=== PATIENT | male | born 1960 | race Caucasian/White ===

== ENCOUNTER 2017-06-05 18:24 | Inpatient (IN) | payer MEDICARE ==
[~2017-06-05] VITALS: Ht 195.6 cm; Wt 88.0 kg
[2017-06-05] VITALS (16 sets, daily range): BP systolic 105–146; BP diastolic 47–86; Ht 195.6 cm; Wt 88.0 kg
--- NOTE | ~2017-06-05 | EC ---
PATIENT:MOHIT CHARLTON DATE OF SERVICE: 06/05/17 SEX: M MEDICAL RECORD: [id number] DATE OF : 64 LOCATION:D.M2 D.211 AGE OF PATIENT: 57 ADMISSION DATE: 06/05/17 REFERRING PHYSICIAN: INTERPRETING PHYSICIAN: JELANI REYES MD ECHOCARDIOGRAM REPORT ECHO CHARGES 4 ECHO COMPLETE CLINICAL DIAGNOSIS: [place] ECHOCARDIOGRAPHIC MEASUREMENTS (adult normal given) AC root (d.<3.7cm) 4.5 cm LV Septum d (<1.2 cm> 1.3 cm Valve Excursion 2.7 cm LV Septum (systole) 1.7 cm Left Atria (s.<4.0cm> 4.1 cm LVPW d(<1.2cm) 1.2 cm RV (d.<2.3cm) 3.0 cm LVPW (sytole) 2.2 cm LV diastole(<5.6CM) 7.6 cm MV E-F(>70mm/sec) cm LV systole 5.5 cm LVOT Diameter 2.3 cm MV exc.(>10mm) cm Est.ejection fraction (50-75%) % Pericardial Effusion N DOPPLER: LVIT cm/sec A 71.0 cm/sec E 106 cm/sec LA cm/sec RVSP 46.0 mmHg LVOT 141 cm/sec AOP1/2T m/s Asc. Ao 149 cm/sec RVOT 48.0 cm/sec RA cm/sec PA 84.0 cm/sec AV Gradient Peak 8.9 mmHg AV Mean 4.0 mmHg AV Area 4.2 cm MV Gradient Peak 7.8 mmHg MV Mean 2.5 mmHg MV Area cm COMMENTS: Program Evaluation Consultant: Darshan AVINAOE Acupuncturist: Tessa Reyes TAPE# PACS DATE OF SERVICE: 06/07/2017 FINDINGS: 1. The left ventricle is moderately dilated. There are wall motion abnormalities with moderate to severe anterior septal hypokinesis, normal inferior lateral wall motion. 2. The ejection fraction appears to be 30%. 3. The left atrium is mildly dilated. 4. Mitral valve is structurally normal with trace to mild mitral regurgitation. 5. The aortic valve is shown to have mildly dilated aortic root and a ECHOCARDIOGRAM REPORT [id number] MOHIT CHARLTON centralized area of moderate aortic regurgitation. 6. The tricuspid valve has mild tricuspid regurgitation with mildly elevated right ventricular systolic pressures. 7. There is no pericardial or pleural effusion. 8. The pulmonic valve is not well visualized. There is trace pulmonic insufficiency. 9. The right atrium is moderately dilated. 10. The right ventricle is mildly dilated with normal function. 11. Inflow characteristics are normal into the left ventricle. IMPRESSION: The patient has evidence of ischemic cardiomyopathy with regional wall motion abnormalities and ejection fraction that is moderately to significantly reduced. TRANSINT:[id number] Voice Confirmation ID: [id number] DOCUMENT ID: [id number] 06/11/2017 Edited to correct date of service, dm. JELANI REYES MD at 1252 CC: [id number] DICTATION DATE: 06/08/17 0932 FRONT OFFICE SPECIALIST: 06/08/17 1302 DIS IN 06/08/17 [facility] [address] [place] [address]
--- NOTE | ~2017-06-05 | HEMODYNAMI ---
PATIENT:MOHIT CHARLTON MEDICAL RECORD: [id number] : 64 [facility] AD[facility] DATE: 06/05/17 Generatedon:06/05/201720:10 Patient name: MOHIT CHARLTON Patient #: [id number] SSN: : 1960 Date of study: 06/05/2017 Page: Of Hemodynamic Procedure Report Patient Data Patient Demographics Procedure consent was obtained First Name: MOHIT Gender: Male Last Name: ZOLTAN : 1960 [facility] Initial: CATALINA Age: 57 year(s) Patient #: [id number] Race: Unknown Additional ID: [id number] Contact details Address: [address] [place] [address] circle State: [place] City: [place] Zip code: [address] Past Medical History Allergies: No allergy information Admission Admission Data Admission Date: 06/05/2017 Admission Time: 19:12 Room #: [facility] Procedure Procedure Types Cath Procedure Diagnostic Procedure LHC LHC w/Coronaries PCI Procedure AMI/SVG/CADD DRAFTER PTCA or Stent AMI-BMS/HALEIGH Initial Miscellaneous Procedures Moderate Sedation up to 30 minutes Procedure Description Procedure Date Procedure Date: 06/05/2017 Procedure Start Time: 19:41 Procedure End Time: 20:10 Procedure Staff Name Function Vic Castro MD Performing Physician Chris Nolasco RT Monitor Basia Madrigal RT Scrub Héctor Maki RN Nurse Kinjal Campos RN Nurse Procedure Data Cath Procedure Fluoroscopy Diagnostic fluoroscopy Total fluoroscopy Time: time: 10.2 min 10.2 min Diagnostic fluoroscopy Total fluoroscopy dose: dose: 1461 mGy 1461 mGy Contrast Material Contrast Material Type Amount (ml) Isovue 300 200 Entry Location Entry Primary Successful Side Size Upsize Upsize Entry Closure Succes sful Closure Location (Fr) 1 (Fr) 2 (Fr) Remarks Device Remarks Femoral Right 6 Fr Exoseal artery Short Estimated blood loss: 10 ml Diagnostic catheters Device Type Used For End Catheter Placement MULTIPACK Pigtail 5 Fr LV Angiography catheter MULTIPACK JL 4.0 5Fr Left Coronary catheter Angiography MULTIPACK 3DRC 5Fr Right Coronary catheter Angiography DIAGNOSTIC JL 5 5Fr Left Coronary catheter ([id number]) Angiography Procedure Complications No complications Procedure Medications Medication Administration Route Dosage 0.9% NaCl I.V. 100 ml/hr Oxygen NC 2 l/min Lidocaine 2% added to field 20 Heparin Flush Bag 2 bags (1000units/500ml NS) Fentanyl I.V. 50 mcg Versed I.V. 1 mg Versed I.V. 0.5 mg Fentanyl I.V. 50 mcg Heparin Bolus I.V. 5000 units Integrilin (Bolus I.V. 7.9 ml 2mg/ml) Integrilin Drip I.V. drip 13.6 ml/hr (75mg/100ml) Versed I.V. 0.5 mg Hemodynamics Rest Heart Rate: 96 (bpm) Snapshots Pre Cath Intra NCS Post Cath Vital Signs Time Heart Resp SPO2 etCO2 NIBP (mmHg) Rhythm Pain Sedation Rate (ipm) (%) (mmHg) Status Level (bpm) 19:33:46 105 20 98 18.1 136/83(110) NSR 0 (11) 10(A) , No pain 19:38:27 101 19 95 25 128/74(98) NSR 0 (11) 10(A) , No pain 19:43:07 115 16 97 29.5 124/77(98) NSR 0 (11) 9(A) , No pain 19:47:48 98 22 98 24.2 127/69(94) NSR 0 (11) 9(A) , No pain 19:52:29 97 22 95 27.2 124/69(90) NSR 0 (11) 9(A) , No pain 19:57:07 97 22 95 27.2 122/70(95) NSR 0 (11) 9(A) , No pain 20:01:48 95 18 97 30.3 130/73(94) NSR 0 (11) 10(A) , No pain 20:06:28 95 23 98 21.2 130/72(97) NSR 0 (11) 10(A) , No pain Medications Time Medication Route Dose Verified Delivered Reason No pop Effectiveness by by 19:33:36 0.9% NaCl I.V. 100ml/hr Vic Anaya used for Matthew Maki RN procedure 19:33:47 Oxygen NC 2 l/min Vic Anaya Per physician Matthew Maki RN 19:33:58 Lidocaine 2% added 20ml vial Vic Ho for local to Matthew Castro MD anesthetic field 19:34:05 Heparin Flush 2 bags Vic Ho used for Bag Matthew Castro MD procedure (1000units/500ml NS) 19:41:07 Fentanyl I.V. 50 mcg Vic Anaya for sedation Matthew Maki RN 19:41:17 Versed I.V. 1 mg Vic Anaya for sedation Matthew Maki RN 19:42:16 Versed I.V. 0.5 mg Vic Anaya for sedation Matthew Maki RN 19:43:20 Fentanyl I.V. 50 mcg Vic Anaya for sedation Matthew Maki RN 19:50:51 Heparin Bolus I.V. 5000 Vic Layton for ve rified units Matthew Campos RN anticoagulation by dr. castro 19:53:51 Integrilin I.V. 7.9 ml Vic Layton for wa gibson (Bolus 2mg/ml) Matthew Campos RN antiplatelet 2.1ML therapy 19:58:14 Integrilin Drip I.V. 13.6ml/hr Vic Layton for pe r (75mg/100ml) ip Matthew Campos RN antiplatelet therapy 19:59:21 Versed I.V. 0.5 mg Vic Leachfany for sedation Matthew Campos RN Procedure Log Time Note 19:13:14 Informed consent obtained and on chart 19:13:40 Time tracking: Call back 19:13:44 Plan of Care:Hemodynamics will remain stable., Cardiac rhythm will remain stable., Comfort level will be maintained., Respiratory function will remain adequate., Patient/ family verbilizes understanding of procedure., Procedure tolerated without complication., Recovers from procedure without complications.. 19:13:57 H&P Date Dictated: 06/05/2017 ER History on chart.. 19:21:53 Chris Nolasco RT(R) sent for patient. Start room use. 19:23:18 Use device set CATH PACK 19:23:23 Use device set MATTHEW PCI 19:23:24 ACIST Syringe (35721) opened to sterile field. 19:23:25 ACIST Hand Control (54380) opened to sterile field. 19:23:25 ACIST Manifold (32662) opened to sterile field. 19:23:26 Medline Cath Pack ([id number]) opened to sterile field. 19:23:26 Bag Decanter (2002) opened to sterile field. 19:23:27 DIAGNOSTIC WIRE .035 260cm J wire (972276) opened to sterile field. 19:23:27 INFLATOR Merit BasixCompak (TM8448) opened to sterile field. 19:23:28 SHEATH 6FR [place] (TAS365) opened to sterile field. 19:23:53 PERCUTANEOUS ENTRY 19GA needle opened to sterile field. 19:26:34 Patient received from CVICU to CCL 1 Alert and oriented. Tansferred to table in Supine position. 19:26:34 Warm blankets applied, and richi hugger turned on for patient comfort. 19:26:35 Correct patient and procedure confirmed by team. 19:26:36 ECG and BP/O2 sat monitors applied to patient. 19:26:37 Full Disclosure recording started 19:32:53 Vital chart was started 19:33:36 0.9% NaCl 100ml/hr I.V. was administered by Héctor Maki RN; used for procedure; 19:33:47 Oxygen 2 l/min NC was administered by Héctor Maki RN; Per physician; 19:33:55 Baseline sample Acquired. 19:33:58 Lidocaine 2% 20ml vial added to field was administered by Vic Castro MD; for local anesthetic; 19:34:05 Heparin Flush Bag (1000units/500ml NS) 2 bags was administered by Vic Castro MD; used for procedure; 19:34:07 Rhythm: sinus rhythm , w/ ST elevation 19:34:11 Pre-procedure instructions explained to patient. 19:34:12 Pre-op teaching completed and patient verbalized understanding. 19:34:14 Family in waiting room. 19:34:16 Patient NPO since Midnight. 19:35:03 Patient allergic to No allergy information 19:35:06 Is the patient allergic to Iodine/contrast media? No. 19:35:10 Is patient on blood thinner?No 19:35:12 Patient diabetic? Yes. 19:35:15 If diabetic: On Metformin? Yes 19:35:17 If on Metformin: Last Dose? 06/05/2017 19:35:21 Previous problem with sedation/anesthesia? No ? 19:35:22 Snore? Yes 19:35:25 Sleep apnea? No 19:35:26 Deviated septum? No 19:35:27 Opens mouth fully? Yes 19:35:27 Sticks out tongue? Yes 19:35:30 Airway obstruction? No ? 19:35:33 Dentures? No ? 19:35:36 Pre procedure: right dorsailis pedis pulse 2+ Normal; easily identifiable; not easily obliterated 19:35:40 Patient pain scale 0/10 ?. 19:35:50 IV patent on arrival in right antecubital with 0.9% NaCl at [facility]. 19:35:56 Lab results completed and on chart. 19:35:59 Right groin area was prepped with chlora-prep and draped in sterile fashion 19:36:00 Alarms reviewed by R. N. 19:36:00 Sharps counted by scrub and verified by R.N. 19:36:21 NO CHART AVAILABLE 19:36:50 Final Timeout: patient, procedure, and site verified with staff and physician. All members of the team are in agreement. 19:36:51 Right groin site verified by team. 19:36:53 Physical assessment completed. ASA score P 2 - A patient with mild systemic disease as per Vic Castro MD. 19:36:56 Sedation plan: IV Moderate Sedation Medication:Versed, Fentanyl 19:38:46 TNK GIVEN AT [address] [facility] PER DR CASTRO 19:40:02 Zero performed for pressure channel P1 19:41:07 Fentanyl 50 mcg I.V. was administered by Héctor Maki RN; for sedation; 19:41:17 Versed 1 mg I.V. was administered by Héctor Maki RN; for sedation; 19:41:36 Procedure started. 19:41:39 Local anesthetic to right femoral artery with Lidocaine 2% by Vic Castro MD.INITIAL ACCESS ONLY 19:42:16 Versed 0.5 mg I.V. was administered by Héctor Maki RN; for sedation; 19:42:27 A 6 Fr Short sheath was inserted into the Right Femoral artery 19:42:49 Use device set Multipack Set 19:42:52 DIAGNOSTIC Multipack 5Fr catheter set ([id number]) opened to sterile field. 19:43:01 A MULTIPACK Pigtail 5 Fr catheter was advanced over the wire and used for LV Angiography. 19:43:20 Fentanyl 50 mcg I.V. was administered by Héctor Maki RN; for sedation; 19:43:33 LV gram done using HSIEH 19:43:38 EF : 30 % 19:43:41 Injector settings: Ml/sec: 10, Volume: 20, 19:43:43 Catheter removed. 19:43:47 A MULTIPACK JL 4.0 5Fr catheter was advanced over the wire and used for Left Coronary Angiography.UNABLE TO CANNULATE 19:44:13 Catheter removed. 19:44:28 A MULTIPACK 3DRC 5Fr catheter was advanced over the wire and used for Right Coronary Angiography. REMOVED UNABLE TO CANNULATE 19:46:30 A DIAGNOSTIC JL 5 5Fr catheter ([id number]) was advanced over the wire and used for Left Coronary Angiography.REMOVED UNABLE TO CANNULATE 19:47:13 GUIDE 6FR AR 2.0 catheter ([id number]) opened to sterile field. 19:47:26 GUIDE 6FR EBU 4.5 catheter ([id number]) opened to sterile field. 19:47:36 6 Fr AR 2 guide catheter was inserted over the wire 19:48:22 RCA angiography performed. 19:48:37 Catheter removed. 19:48:51 6 Fr EBU 4.5 guide catheter was inserted over the wire 19:49:30 LCA angiography performed. 19:50:15 GRAPHIX 300cm 0.014 guide wire ([id number]) opened to sterile field. 19:50:51 Heparin Bolus 5000 units I.V. was administered by Kinjal Campos RN; for anticoagulation; verified by dr. castro 19:51:27 GRAPHIX wire advanced. 19:51:44 ACC Pre-intervention SHAYE Flow is 1. 19:51:56 Study PCI Site: [place] mLAD has 80% stenosis. 19:52:55 Inflation number: 1 A EMERGE OTW 2.5 x 20 balloon ([id number]) was prepped and advanced across the Dist LAD, then inflated to 5 LIZABETH for 0:10 (min:sec). 19:53:51 Integrilin (Bolus 2mg/ml) 7.9 ml I.V. was administered by Kinjal Campos RN; for antiplatelet therapy; waste 2.1ML 19:54:21 Inflation number: 2 The EMERGE OTW 2.5 x 20 balloon ([id number]) was reinflated across the Dist LAD, to 3 LIZABETH for 0:06 (min:sec). 19:55:00 Balloon removed over the wire. 19:56:46 Inflation Number: 3 A INTEGRITY OTW 2.5 X 22 stent ([id number]) was prepped and advanced across the Dist LAD. The stent was deployed at 17 LIZABETH for 0:05 (min:sec). 19:57:45 Inflation number: 4 The stent balloon was then re-inflated across the Dist LAD to 3 LIZABETH for 0:15 (min:sec). 19:58:14 Integrilin Drip (75mg/100ml) 13.6ml/hr I.V. drip was administered by Kinjal Campos RN; for antiplatelet therapy; per 19:58:33 Stent catheter was removed intact over wire. 19:59:21 Versed 0.5 mg I.V. was administered by Kinjal Campos RN; for sedation; 20:00:51 Inflation Number: 5 A MINI VISION Rx 2.0 x 28 stent ([id number]) was prepped and advanced across the Dist LAD. The stent was deployed at 11 LIZABETH for 0:03 (min:sec). 20:01:32 Stent catheter was removed intact over wire. 20:01:33 Wire removed. 20:01:33 Guide catheter removed. 20:01:57 Sheath removed intact; hemostasis achieved with Exoseal to the Right Femoral artery. 20:01:58 Procedure ended.(Physican Out) 20:06:39 Fluoroscopy time 10.20 minutes. 20:07:23 Fluoroscopy dose: 1461 mGy 20:07:23 Flurop Dose total: 1461 20:07:26 Contrast amount:Isovue 300 200ml. 20:07:27 Sharps counted by scrub and verified by R.N. 20:07:28 Insertion/operative site no bleeding no hematoma. 20:07:41 Post right femoral artery:bleeding 20:07:46 Femstop placed over the right femoral artery at 150 mmHg. Hemostasis achieved. 20:07:47 Post Procedure Pulses reassessed and unchanged 20:07:52 Post-procedure physical assessment completed. ASA score P 2 - A patient with mild systemic disease as per Vic Castro MD. 20:07:54 Post procedure rhythm: unchanged. 20:07:58 Estimated blood loss: 10 ml 20:08:00 Post procedure instruction explained to patient.Patient verbalizes understanding. 20:08:00 Patient needs reinforcement of post procedure teaching. 20:08:10 FEMSTOP Gold (N48785) opened to sterile field. 20:08:31 Procedure type changed to Cath procedure, Diagnostic procedure, LHC, LHC w/Coronaries, PCI procedure, AMI/SVG/CADD DRAFTER PTCA or Stent, AMI-BMS/HALEIGH Initial, Miscellaneous Procedures, Moderate Sedation up to 30 minutes 20:08:36 Procedure Complication : No complications 20:08:40 See physician's report for complete and final results. 20:09:07 EXOSEAL 6Fr (EX600) opened to sterile field. 20:09:23 Procedure and supply charges have been captured, reviewed, submitted and are correct. 20:09:31 Vital chart was stopped 20:09:34 Report given to CVICU. 20:09:38 Patient transfered to CVICU with Bed. 20:09:59 Procedure ended. 20:09:59 Full Disclosure recording stopped 20:10:03 End room use (Document Last) Intervention Summary Intervention Notes Time ActionType Lesion and Equipment Action# Pressure Duration Attributes Used 19:52:55 Inflate Dist LAD EMERGE OTW 1 5 00:10 balloon 2.5 x 20 balloon ([id number]) 19:54:21 Reinflate Dist LAD EMERGE OTW 2 3 00:06 balloon 2.5 x 20 balloon ([id number]) 19:56:46 Place stent Dist LAD INTEGRITY 3 17 00:05 OTW 2.5 X 22 stent ([id number]) 19:57:45 Reinflate Dist LAD INTEGRITY 4 3 00:15 stent OTW 2.5 X 22 balloon stent ([id number]) 20:00:51 Place stent Dist LAD MINI VISION 5 11 00:03 Rx 2.0 x 28 stent ([id number]) Device Usage Item Name Manufacture Quantity Catalog Number Hospital Part Current Min imal Lot# / Charge Number Stock Stock Serial# Code ACIST Acist 1 73540 062686 193795 772883 20 OptiMedica (18306Fuhuajie Industrial ([place]) ACIST Hand Acist 1 26421 205147 732873 649146 5 Control Medical (62788) Systems Inc ACIST Acist 1 87097 931096 328845 388249 5 Manifold Medical (80213) Systems Inc Medline Cath Cardinal 1 [id number] 618909 65838 191131 5 Nohms Technologies ([id number]) Bag Decanter Microtek 1 2001S 181682 59059 953663 5 () Medical Inc. DIAGNOSTIC St Nir[place]jan 1 216921 507593 346971 187665 30 WIRE .035 260cm J wire (109410) INFLATOR To The Tops 1 JB2062 642206 449442 765771 15 To The Tops Medical BasixCompak (IU7607) SHEATH 6FR Terumo 1 YAX720 684980 132072 587242 40 [place] (CMO110) PERCUTANEOUS [facility] 1 L29386 761064 760435 5 ENTRY 19GA needle DIAGNOSTIC Cardinal 1 XB4363 368530 87327 917741 30 Multipack Health 5Fr catheter set (YZ0121) MULTIPACK Cardinal 1 768133 5 Pigtail 5 Fr Health catheter MULTIPACK JL Cardinal 1 435913 5 4.0 5Fr Health catheter MULTIPACK Cardinal 1 275992 5 3DRC 5Fr Health catheter DIAGNOSTIC Cardinal 1 [id number] 010332 471905 666139 5 JL 5 5Fr Health catheter (209350B) GUIDE 6FR AR Medtronic 1 [id number] 478723 14675 866987 1 2.0 catheter (WM9FY41) GUIDE 6FR Medtronic 1 BV6DZE64 515706 01310 843068 0 EBU 4.5 catheter (VR7DJH22) GRAPHIX [place] 1 [id number] 088671 989774 582210 5 300cm 0.014 Scientific guide wire ([id number]) EMERGE OTW [place] 1 [id number] 338539 650175 5 [id number] 2.5 x 20 Scientific balloon ([id number]) INTEGRITY Medtronic 1 [id number] 880376 941869 9 [id number] OTW 2.5 X 22 stent ([id number]) MINI VISION [place] 1 [id number] 982703 367918 917550 5 6009623 Rx 2.0 x 28 Vascular stent ([id number]) FEMSTOP Gold St Niranjan 1 D35770 234555 950813 886926 5 (E96891) EXOSEAL 6Fr Cardinal 1 EX600 256429 810693 372881 10 (EX600) Health Signature Audit [place] Stage Time Signature Unsigned Intra-Procedure 06/05/2017 Basia 8:10:16 PM Counts RT(R) Signatures Monitor : Chris Nolasco RT Signature : Date : Time : [id number] [place] [address]
--- NOTE | ~2017-06-05 | HP ---
PATIENT: MOHIT CHARLTON MEDICAL RECORD: [id number] ACCOUNT: [id number] LOCATION:[facility] TonyCV08 : 64 ADMISSION DATE: 06/05/17 HISTORY AND PHYSICAL EXAMINATION DIAGNOSES: 1. Acute anterior myocardial infarction. 2. Coronary artery disease. 3. Mitral valve regurgitation. 4. Hypertension. HISTORY OF PRESENT ILLNESS: This is a gentleman with no history of ischemic heart disease, seen a theatre professor in the past for mitral regurgitation and hypertension, who presented to [facility] with chest pain, diagnosed with an acute anterior myocardial infarction and underwent thrombolytic therapy. PHYSICAL EXAMINATION: GENERAL APPEARANCE: Well-nourished, well-developed, appears stated age. Level of distress, comfortable. PSYCHIATRIC: Mental status, alert, normal affect. Orientation, oriented to time, place and person. EYES: Lids and conjunctiva, noninjected. No discharge, no pallor. ENT: Lips, teeth, gums, normal dentition. Oropharynx, no cyanosis, no pallor. NECK: Carotid arteries, bilateral normal upstroke, no bruits, no thrills. JUGULAR VEINS: No jugular venous pressure or distention. CERVICAL LYMPH NODES: Nontender, nonenlarged. THYROID: Not enlarged. Nontender. No nodules. LUNGS: Respiratory effort, unlabored. CHEST: Normal curvature. No thoracic deformity. No chest wall tenderness. Percussion, resonant. Auscultation, clear. No wheezes, no rales, no rhonchi. CARDIOVASCULAR: Precordial exam, nondisplaced. No heaves or pericardial thrills. Rate and rhythm, regular. Heart sounds, normal S1, normal S2. No S3, no gallop, no rub. Systolic murmur, not heard. Diastolic murmur, not heard. EXTREMITIES: No cyanosis, no edema. Peripheral pulses, full and equal in all extremities, except as noted. No bruits appreciated. ABDOMEN: Soft, nondistended. Normal aorta. No bruit. Nontender. No masses. Liver, nontender, no hepatomegaly. Spleen, nontender, no splenomegaly. MUSCULOSKELETAL: No joint tenderness. No joint swelling. No erythema. NEUROLOGICAL: Normal gait, normal strength, normal tone. SKIN: Warm and dry. REVIEW OF SYSTEMS: The patient reports easy bruising but reports no swollen glands. The patient reports no fever, no night sweats, no significant weight gain, no significant weight loss. No significant exercise tolerance. The patient reports no dry eyes, no irritation, no vision change. Patient reports no difficulty hearing and no ear pain. Patient reports no frequent nose bleeds or nose and sinus problems. Patient reports on arm pain on exertion. No shortness of breath while lying down. No history of heart murmur. Patient reports no cough, no wheezing or coughing up blood. Patient reports no abdominal pain, no vomiting. Normal appetite. No diarrhea and not vomiting blood. No nausea and no constipation. Patient reports no incontinence. No difficulty urinating. No hematuria. No increased frequency. Patient reports no muscle aches. No weakness, no arthralgias, no back pain. No swelling of the extremities. Patient reports no abnormal mole, no jaundice, no rashes. Reports no loss of consciousness. No weakness and no numbness. No seizures, dizziness, HISTORY AND PHYSICAL [id number] ZOLTAN,MOHIT CATALINA or headaches. The patient reports no depression, no sleep disturbance, feeling safe in a relationship and no alcohol abuse. Patient reports on fatigue. Reports no runny nose or sinus pressure. No itching, no hives, and no frequent sneezing. OVERALL IMPRESSION: Continued ST changes on his EKG with overall most relief of his pain. We will proceed with coronary angiography. Further care depends upon findings of the angiography. TRANSINT:[id number] Voice Confirmation ID: [id number] DOCUMENT ID: [id number] RIGOBERTO DHALIWAL MD at 1018 CC: [id number] DICTATION DATE: 06/05/172008 CONDITIONING YARD SUPERVISOR: 06/05/172128 ADM IN [facility] [address] [id number]
--- NOTE | ~2017-06-05 | OP ---
PATIENT NAME: MOHIT CHARLTON MEDICAL RECORD: [id number] :64 LOCATION:[facility] ADMISSION DATE:06/05/17 SURGEON: RIGOBERTO DHALIWAL MD DATE OF OPERATION: 06/05/2017 PROCEDURES: 1. PTCA stent LAD. 2. Left heart catheterization. 3. Selective coronary angiography. 4. Left ventriculogram. INDICATION: Acute anterior myocardial infarction. DESCRIPTION OF PROCEDURE: After informed consent was obtained and after a detailed explanation of the risks, benefits as well as alternative therapies, the patient elected to proceed with angiogram and angioplasty. The right femoral area was prepped and draped in normal sterile fashion. The right femoral artery was cannulated via modified Seldinger technique with placement of 6-Hong Konger sheath. All catheters exchanged through this sheath. FINDINGS: The left ventriculogram was performed in standard 30-degree HSIEH view, reveals severe global hypokinesis throughout all segments. Overall ejection fraction is 30%. SELECTIVE CORONARY ANGIOGRAPHY: 1. Left main showed no significant angiographic disease. 2. Left anterior descending has 80% stenosis in the proximal vessel followed by 100% stenosis distally. 3. The left circumflex has 80+ percent stenosis in the mid vessel. 4. Right coronary has mild irregularities, but no flow-limiting stenosis. PTCA STENT OF THE LAD: The stent used was a 2.5 x 22 mm Integrity and 2.0 x 28 mm mini Vision. Result was 0% residual stenosis. OVERALL IMPRESSION: Successful percutaneous transluminal coronary angioplasty stent of the left anterior descending going from 100% initial stenosis to 0% residual stenosis with religious of SHAYE-3 flow. TRANSINT:[id number] Voice Confirmation ID: [id number] DOCUMENT ID: [id number] RIGOBERTO DHALIWAL MD at 1018 CC: [id number] DICTATION DATE: 06/05/172007 SHIPPING AND RECEIVING SPECIALIST: 06/05/17 [address] [place] [address]
[2017-06-05 22:06] LABS: HEMATOCRIT 29.8 % (42.0-54.0); HEMOGLOBIN 9.4 g/dL (13.5-17.5)
[2017-06-06] VITALS (19 sets, daily range): BP systolic 105–134; BP diastolic 52–69
[2017-06-06] MEDS ORDERED: GLUCOPHAGE500 MG PO (04:23)
[2017-06-06] MEDS ORDERED: TYLENOL #4 W/CO1 TAB PO (04:24)
[2017-06-06] MEDS ORDERED: LEVOTHYROXINE112 MCG PO (04:25)
[2017-06-06] MEDS ORDERED: SINGULAIR10 MG PO (04:25)
[2017-06-06] MEDS ORDERED: JANUVIA100 MG PO (04:26)
[2017-06-06] MEDS ORDERED: TOPROL XL25 MG PO (04:27)
[2017-06-06] MEDS ORDERED: AMBIEN10 MG (04:30)
[2017-06-06] MEDS ORDERED: ALPHAGAN 0.2%5 ML EACH EYE (04:33)
[2017-06-06] MEDS ORDERED: CYCLOBENZAPRINE10 MG PO (04:34)
[2017-06-06] MEDS ORDERED: LUMIGAN 0.01%2.5 ML EACH EYE (04:35)
[2017-06-06] MEDS ORDERED: MULTAQ400 MG PO (04:36)
[2017-06-06] MEDS ORDERED: AMBIEN10 MG PO (04:36)
[2017-06-06] MEDS ORDERED: REMERON15 MG PO (04:38)
[2017-06-07 02:43] VITALS: BP 95/45
[2017-06-07 09:02] VITALS: BP 96/43
[2017-06-07 10:08] LABS: BASOPHILS 0.3 % (0-2); EOSINOPHILS 2.8 % (0-7); HEMATOCRIT 29.6 % (42.0-54.0); HEMOGLOBIN 9.2 g/dL (13.5-17.5); IMMATURE GRANULOCYTES 0.3 % (0-5); LYMPHOCYTES 15.2 % (15-50); MCH 25.3 pg (26.0-34.0); MCHC 31.1 g/dL (31.0-37.0); MCV 81.5 fL (80.0-100.0); MEAN PLATELET VOLUME 10.9 fL (7.4-10.4); MONOCYTES 9.4 % (2-11); PLATELET COUNT 177 10x3/uL (130-400); RBC 3.63 10x6/uL (4.20-6.10); RDW 17.9 % (11.5-14.5); WBC 7.5 10x3/uL (4.8-10.8)
[2017-06-07 10:42] LABS: ALBUMIN 3.3 g/dL (3.4-5.0); ALKALINE PHOSPHATASE 46 U/L (46-116); ALT (SGPT) 23 U/L (10-68); BILIRUBIN - TOTAL 0.94 mg/dL (0.2-1.3); CALC OSMOLALITY 281 mosm/kg (275-300); CALCIUM 8.2 mg/dL (8.5-10.1); CARBON DIOXIDE 24.8 mmol/L (21.0-32.0); CHLORIDE - SERUM 105 mmol/L (98-107); CREATININE - SERUM 0.9 mg/dL (0.6-1.3); GLUCOSE 157 mg/dL (74-106); POTASSIUM - SERUM 3.9 mmol/L (3.5-5.1); PROTEIN - SERUM 5.9 g/dL (6.4-8.2); SODIUM 139 mmol/L (136-145); UREA NITROGEN 14 mg/dL (7-18); eGFR NON AFRICAN AMERICAN > 90 mL/min (90-120)
[2017-06-07 10:47] LABS: TROPONIN-I 17.108 ng/mL (0.000-0.060)
[2017-06-07 11:13] VITALS: BP 98/51
[2017-06-07 16:56] VITALS: BP 101/56
[2017-06-07 20:00] VITALS: BP 114/49
[2017-06-08] VITALS: BP 101/49
[2017-06-08 04:00] VITALS: BP 108/51
[2017-06-08 08:01] VITALS: BP 103/41
[2017-06-08] MEDS ORDERED: PRAVACHOL20 MG PO (11:02)
[2017-06-08] MEDS ORDERED: LOPRESSOR25 MG PO (11:02)
[2017-06-08] MEDS ORDERED: PLAVIX75 MG PO (11:02)
[2017-06-08 11:26] VITALS: BP 108/53
[2017-06-08 15:52] VITALS: BP 105/56
== END 2017-06-08 15:15 | disposition home or self-care (01) | DRG 249 ==
LOC: D.CVICU 18:24 → D.M2 06-06 14:40 → D.SDCHOLD 06-06 15:37 → D.M2 06-06 15:40 → D.SDCHOLD 06-06 15:40 → D.M2 06-06 15:40
PROVIDERS: Internal Medicine Cardiovascular Disease; Internal Medicine Interventional Cardiology
PROC: B2111ZZ Fluoroscopy of Multiple Coronary Arteries using Low Osmolar Contrast (ICD-10-PCS; 2017-06-05)
PROC: B2151ZZ Fluoroscopy of Left Heart using Low Osmolar Contrast (ICD-10-PCS; 2017-06-05)
PROC: 02703EZ Dilation of Coronary Artery, One Artery with Two Intraluminal Devices, Percutaneous Approach (ICD-10-PCS; principal; 2017-06-05 19:21)
PROC: 4A023N7 Measurement of Cardiac Sampling and Pressure, Left Heart, Percutaneous Approach (ICD-10-PCS; 2017-06-05 19:21)
DX: I21.09 ST elevation (STEMI) myocardial infarction involving other coronary artery of anterior wall (principal); I25.10 Atherosclerotic heart disease of native coronary artery without angina pectoris; I10 Essential (primary) hypertension; I34.0 Nonrheumatic mitral (valve) insufficiency

== ENCOUNTER 2017-07-08 12:24 | Inpatient (IN) | payer MEDICARE ==
[~2017-07-08] VITALS: Ht 195.6 cm; Wt 104.3 kg
--- NOTE | ~2017-07-08 | CN ---
PATIENT NAME:MOHIT CHARLTON MEDICAL RECORD: [id number] : 64 LOCATION:[id number] ADMIT DATE: 07/08/17 ACCOUNT: [id number] CONSULTING PHYSICIAN: JOIE YANEZ MD REFERRING PHYSICIAN: MARCELO STEPHENSON MD DATE OF CONSULTATION: 07/22/2017 IDENTIFYING DATA: The patient is a 57 years old and he is admitted to rehab secondary to deconditioning. CHIEF COMPLAINT: Depression. HISTORY OF PRESENT ILLNESS: The patient is a very unfortunate man who has had a significant number of acute health issues in the past few months. Primarily, it is related to a massive heart attack with resulting 30% ejection fraction and his subsequent deconditioning that led to him being admitted to rehab. The patient had a who committed suicide 14 years ago. He had no children with her. He is fairly isolated. He does have some family members. He is endorsing numerous neurovegetative depressive symptoms, but denies that he would seek to harm himself or others as well as any overt psychotic symptoms. He is currently taking several antidepressant medications, all at homeopathic doses. The patient will have those stopped and consolidated into a more realistic dose of one. MENTAL STATUS EXAMINATION: The patient is awake; alert; and oriented to person, place, time, and situation. His mood is depressed. His affect is constricted. Thought processes are circumstantial. Memory, concentration, and abstraction abilities are at least moderately impaired. He denies any active intent to harm himself or others as well as any overt psychotic symptoms. ASSETS: Supportive family members. LIABILITIES: Limited insight. DIAGNOSTIC IMPRESSION: Major depression, single episode, without psychotic features. PLAN: At this time, the patient is clearly depressed. I do not obgyn specialist him to be acutely dangerous currently. He does not have a psychiatric history and actually discussed his 's suicide in a way that was healthy and reasonable. I think that, if the patient felt better physically, that he would have a proportionate response emotionally. Certainly, given his circumstances and the acute change, his depression is completely understandable. Again, I do not see evidence of acute dangerousness. He speaks about how much he wants to get better, what he would like to return to doing, and these are things that show he is thinking about the future. I am going to discontinue the Elavil and the Remeron and will increase the dose of Lexapro to 20 mg daily. In general, I do not think the patient is in need of ongoing psychiatric care unless he fails to improve in the next few weeks. I have discussed this with him. He is not interested in becoming a regular therapy patient or having follow up with an outpatient psychiatrist at this point, but I did leave that door open in case he does not show improvement. Please reconsult if the condition changes. TRANSINT:[id number] Voice Confirmation ID: [id number] DOCUMENT ID: [id number] CONSULT REPORT [id number] MOHIT CHARLTON PETER MD at 1224 CC: [id number] DICTATION DATE: 07/22/17 1445 BASKETBALLS AND FOOTBALLS REVERSER: 07/22/17 1549 DIS IN 07/22/17 [place] [id number] [place] [address]
--- NOTE | ~2017-07-08 | RHP ---
PATIENT: MOHIT CHARLTON MEDICAL RECORD: [id number] ACCOUNT: [id number] LOCATION:[facility]12 : 64 ADMISSION DATE: 07/08/17 REHABILITATION HISTORY AND PHYSICAL EXAMINATION POST ADMISSION PHYSICIAN EXAMINATION POST-ADMISSION PHYSICAL EXAMINATION AND HISTORY AND PHYSICAL DATE OF ADMISSION: 07/08/2017 ADMITTING DIAGNOSIS: Neuromuscular disorder. HISTORY OF PRESENT ILLNESS: The patient is a 57-year-old gentleman, who is admitted to rehab with a disuse myopathy secondary to prolonged hospitalization for sepsis, shock, renal failure, hepatic failure, metabolic acidosis, and hypoxic respiratory failure. He has got a history of cardiomyopathy and coronary artery disease. He had an EF of 30%. The patient had an acute NV and underwent cardiac catheterization with stent placement on 06/05. On the following day, he got sick and had fever, had shortness of breath. He was seen at [facility]. There, he was found to have acute renal failure, hepatic failure, metabolic acidosis, lactic acidosis with a level of 17. The patient was transferred to [facility] for admit and advanced care on 06/16. He was admitted to the ICU and remained there for 5 days. Pulmonary and nephrology were consulted. He developed a retroperitoneal hematoma and hematoma in the right thigh. Hematology was consulted for hypercoagulopathy and he received a total of 10 units packed red blood cells. His retroperitoneal bleeding is controlled and his H&H are stabilized at 10.3 and 33.9. He is on room air and has an O2 sat of 96%. He has had a prolonged immobility, progressive generalized weakness especially in his lower extremities affecting his tolerance to PT. He is very fatigued. Limited flexion and extension of lower extremities. Proximal muscle strength is decreased. He is ziqlteos-nt-ejx assist for ADLs, somdgkpd-nc-iai assist for iuk-ci-vihgk and rds-nn-iaoad due to pain in his back and leg. Prior to admit in May, he was independent with ADLs and mobility without aid. He is motivated to regain his strength and hopefully return back home. He lives in the [facility]. Comorbidities include sepsis, shock, hepatic failure, acute renal failure, recent NV, congestive heart failure, coronary artery disease, hypothyroidism, diabetes, ischemic cardiomyopathy, acute kidney injury, leukocytosis, retroperitoneal hematoma, right knee effusion, anasarca, fatigue, weakness, anemia, anxiety, and depression. PAST MEDICAL HISTORY: Significant for CHF and ejection fraction of 30%, coronary artery disease, hypothyroidism, diabetes, glaucoma, chronic migraines. PAST SURGICAL HISTORY: Includes cataract surgeries. He is also status post pacemaker placement. ALLERGIES: No known drug allergies. CURRENT MEDICATIONS: Include Januvia 100 mg daily, Pravachol 20 mg daily, Synthroid 112 mcg daily, Lexapro 10 mg daily. He is on aspirin chewable 81 mg daily, Cordarone 200 mg daily, Alphagan eye drops daily. He is on zolpidem 10 mg at bedtime, polyethylene glycol 17 grams in 8 ounce of water daily, Percocet 10/325 one to two tabs every 4 hours p.r.n., Singulair 10 mg at bedtime, Remeron 15 mg at bedtime, Lopressor 25 mg b.i.d., milk of mag as needed, Ativan 0.25 mg HISTORY AND PHYSICAL [id number] MOHIT CHARLTON CATALINA t.i.d., Flexeril 10 mg t.i.d. p.r.n., and Elavil 25 mg at bedtime. HABITS: No alcohol or tobacco use. FAMILY HISTORY: Noncontributory. SOCIAL HISTORY: The patient hopes to return back home to [place] and get back to his prior level of functioning. REVIEW OF SYSTEMS: GENERAL: Does complain of weakness and fatigue. HEENT: Denies cold, cough, or congestion. CARDIOVASCULAR: Denies chest pain. PHYSICAL EXAMINATION: VITAL SIGNS: Stable, afebrile. GENERAL: A well-developed gentleman, in no acute distress upon exam. HEENT: Normocephalic and atraumatic. Mucosa moist. NECK: Supple. No lymphadenopathy. LUNGS: Clear at this time. HEART: Regular rate and rhythm. ABDOMEN: Benign. EXTREMITIES: No clubbing, cyanosis or edema. NEUROLOGIC: Intact. LABORATORY DATA: His white count is 9.5, H&H of 11 and 37, and platelet count is 454. ASSESSMENT: This is a 57-year-old gentleman admitted to the rehab with a working diagnosis of disuse myopathy. The patient has potential to make improvement. We will institute the following multidisciplinary therapies including, but not limited to physical, occupational, respiratory, speech, nutritional services, prosthetics and orthotics. Given his complex condition and risks for more complications, rehabilitation services cannot be provided at a low level of care such as a correction facility. PLAN: 1. Admit to [facility] for intensive inpatient therapy to include the following disciplines: A. Physical therapy to improve gait, all transfer skills and bed mobility to a modified independent level. B. Occupational therapy to improve activities of daily living to a modified independent level. C. Case management to assist with discharge planning and placement options. D. Nutrition to assist with nutritional needs. E. Rehabilitation nursing to assist in monitoring the patient's underlying medical conditions and to assist with any type of bowel or bladder management. 2. The patient's current medications and medical care will be continued. 3. The patient will be placed on standard fall precautions. 4. The patient's estimated length of stay is approximately 7-10 days. 5. We will discuss this patient during care team staff meeting this week. TRANSINT:[id number] Voice Confirmation ID: [id number] DOCUMENT ID: [id number] HISTORY AND PHYSICAL [id number] MOHIT CHARLTON notes whether there has been none or any medical/functional change since admission: - Patient arrived having cardiac sypmtoms. See orders. POPPY attests patient continues to be appropriate for IRF: - Continues to be appropriate for IRF. Will follow closely. MARCELO STEPHENSON MD at 1055 CC: [id number] DICTATION DATE: 07/11/1721 BELT PUNCHER: 07/11/17 0938 DIS IN 07/22/17 [place] [id number]
[~2017-07-08 12:24] MED LIST: ALPHAGAN 0.2%5 ML EACH EYE; AMBIEN10 MG; AMBIEN10 MG PO; CYCLOBENZAPRINE10 MG PO; ELAVIL25 MG PO; GLUCOPHAGE500 MG PO; JANUVIA100 MG PO; LEVOTHYROXINE112 MCG PO; LEXAPRO10 MG PO; LOPRESSOR25 MG PO; LUMIGAN 0.01%2.5 ML EACH EYE; MILK OF MAGNESI30 ML PO; MIRALAX17 GM PO; MULTAQ400 MG PO; PACERONE200 MG PO; PERCOCET 10/3251 TA1 PO; PLAVIX75 MG PO; PRAVACHOL20 MG PO; REMERON15 MG PO; SINGULAIR10 MG PO; TOPROL XL25 MG PO; TYLENOL #4 W/CO1 TAB PO
[2017-07-08 12:32] LABS: CALC OSMOLALITY 275 mosm/kg (275-300); CARBON DIOXIDE 23.2 mmol/L (21.0-32.0); CHLORIDE - SERUM 102 mmol/L (98-107); CKMB 1.3 U/L (0.0-3.6); CREATINE KINASE 58 UL (21-232); CREATININE - SERUM 0.9 mg/dL (0.6-1.3); GLUCOSE 153 mg/dL (74-106); POTASSIUM - SERUM 4.5 mmol/L (3.5-5.1); SODIUM 136 mmol/L (136-145); TROPONIN-I 0.038 ng/mL (0.000-0.060); UREA NITROGEN 15 mg/dL (7-18); eGFR NON AFRICAN AMERICAN > 90 mL/min (90-120)
[2017-07-08 12:34] LABS: BASOPHILS 0.3 % (0-2); EOSINOPHILS 4.7 % (0-7); HEMATOCRIT 35.6 % (42.0-54.0); IMMATURE GRANULOCYTES 0.6 % (0-5); LYMPHOCYTES 12.6 % (15-50); MCH 29.9 pg (26.0-34.0); MCHC 30.9 g/dL (31.0-37.0); MCV 96.7 fL (80.0-100.0); MEAN PLATELET VOLUME 9.7 fL (7.4-10.4); NEUTROPHILS 69.8 % (40-80); PLATELET COUNT 514 10x3/uL (130-400); RBC 3.68 10x6/uL (4.20-6.10); RDW 19.4 % (11.5-14.5); WBC 7.8 10x3/uL (4.8-10.8)
[2017-07-08 13:10] VITALS: BP 122/64; BMI 27.3
[2017-07-08 19:37] LABS: CKMB 30.4 U/L (0.0-3.6)
[2017-07-08 19:41] LABS: CREATINE KINASE 274 UL (21-232); TROPONIN-I 12.217 ng/mL (0.000-0.060)
[2017-07-08 22:10] VITALS: BP 122/60
[2017-07-09 01:02] LABS: CKMB 24.1 U/L (0.0-3.6); CREATINE KINASE 293 UL (21-232)
[2017-07-09 01:03] LABS: TROPONIN-I 11.332 ng/mL (0.000-0.060)
[2017-07-09 07:47] VITALS: BP 127/68
[2017-07-09] MEDS ORDERED: ASPIRIN81 MG PO (16:53)
[2017-07-09] MEDS ORDERED: ATIVAN0.5 MG PO (16:53)
[2017-07-10 10:00] VITALS: BP 126/69
[2017-07-10 19:00] VITALS: BP 139/65
[2017-07-11 07:06] LABS: BASOPHILS 0.5 % (0-2); EOSINOPHILS 2.5 % (0-7); HEMATOCRIT 37.1 % (42.0-54.0); HEMOGLOBIN 11.4 g/dL (13.5-17.5); IMMATURE GRANULOCYTES 0.3 % (0-5); LYMPHOCYTES 7.2 % (15-50); MCH 29.6 pg (26.0-34.0); MCHC 30.7 g/dL (31.0-37.0); MCV 96.4 fL (80.0-100.0); MONOCYTES 9.9 % (2-11); NEUTROPHILS 79.6 % (40-80); PLATELET COUNT 454 10x3/uL (130-400); RBC 3.85 10x6/uL (4.20-6.10); RDW 19.1 % (11.5-14.5); WBC 9.5 10x3/uL (4.8-10.8)
[2017-07-11 09:11] VITALS: BP 132/63
[2017-07-11 12:15] VITALS: Ht 195.6 cm; Wt 104.3 kg
[2017-07-11 20:00] VITALS: BP 126/62
[2017-07-12 08:32] VITALS: BP 126/66
[2017-07-12 19:20] VITALS: BP 107/44
[2017-07-13 07:57] VITALS: BP 138/59
[2017-07-13 20:35] VITALS: BP 121/65
[2017-07-14 06:33] LABS: BASOPHILS 0.4 % (0-2); EOSINOPHILS 1.1 % (0-7); HEMATOCRIT 39.1 % (42.0-54.0); HEMOGLOBIN 12.1 g/dL (13.5-17.5); IMMATURE GRANULOCYTES 0.7 % (0-5); LYMPHOCYTES 8.6 % (15-50); MCH 29.4 pg (26.0-34.0); MCHC 30.9 g/dL (31.0-37.0); MCV 94.9 fL (80.0-100.0); MEAN PLATELET VOLUME 10.7 fL (7.4-10.4); MONOCYTES 8.8 % (2-11); NEUTROPHILS 80.4 % (40-80); PLATELET COUNT 430 10x3/uL (130-400); RBC 4.12 10x6/uL (4.20-6.10); RDW 19.5 % (11.5-14.5); WBC 11.1 10x3/uL (4.8-10.8)
[2017-07-14 06:39] LABS: ANION GAP 20.5 mmol/L (8-16); CARBON DIOXIDE 17.9 mmol/L (21.0-32.0); CREATININE - SERUM 1.2 mg/dL (0.6-1.3); POTASSIUM - SERUM 5.4 mmol/L (3.5-5.1)
[2017-07-14 07:45] VITALS: BP 130/64
[2017-07-14 20:00] VITALS: BP 112/53
[2017-07-15 08:48] VITALS: BP 107/45
[2017-07-15 22:44] VITALS: BP 111/67
[2017-07-16 06:29] LABS: BASOPHILS 0.5 % (0-2); EOSINOPHILS 2.8 % (0-7); HEMATOCRIT 40.1 % (42.0-54.0); HEMOGLOBIN 12.3 g/dL (13.5-17.5); IMMATURE GRANULOCYTES 0.6 % (0-5); LYMPHOCYTES 8.4 % (15-50); MCH 29.6 pg (26.0-34.0); MCHC 30.7 g/dL (31.0-37.0); MCV 96.4 fL (80.0-100.0); MEAN PLATELET VOLUME 10.9 fL (7.4-10.4); MONOCYTES 8.5 % (2-11); NEUTROPHILS 79.2 % (40-80); RBC 4.16 10x6/uL (4.20-6.10); RDW 19.5 % (11.5-14.5); WBC 10.5 10x3/uL (4.8-10.8)
[2017-07-16 06:31] LABS: PLATELET COUNT 339 10x3/uL (130-400)
[2017-07-16 06:42] LABS: ANION GAP 17.8 mmol/L (8-16); CALCIUM 8.2 mg/dL (8.5-10.1); CARBON DIOXIDE 20.2 mmol/L (21.0-32.0); CREATININE - SERUM 1.1 mg/dL (0.6-1.3)
[2017-07-16 09:08] VITALS: BP 112/70
[2017-07-16 09:22] LABS: ALBUMIN 2.7 g/dL (3.4-5.0); BILIRUBIN - DIRECT 1.95 mg/dL (0.00-0.30); BILIRUBIN - INDIRECT 1.55 mg/dL (0.00-1.00); BILIRUBIN - TOTAL 3.5 mg/dL (0.2-1.3)
[2017-07-16 22:30] VITALS: BP 121/49
[2017-07-17 06:07] LABS: ALBUMIN 2.8 g/dL (3.4-5.0); ANION GAP 20.2 mmol/L (8-16); BILIRUBIN - TOTAL 4.2 mg/dL (0.2-1.3); CALCIUM 8.2 mg/dL (8.5-10.1); CARBON DIOXIDE 19.9 mmol/L (21.0-32.0); CREATININE - SERUM 1.2 mg/dL (0.6-1.3); POTASSIUM - SERUM 5.1 mmol/L (3.5-5.1); PROTEIN - SERUM 5.8 g/dL (6.4-8.2)
[2017-07-17 08:00] VITALS: BP 122/52
[2017-07-17 19:30] VITALS: BP 121/61
[2017-07-18 06:12] LABS: BASOPHILS 0.3 % (0-2); HEMATOCRIT 42.2 % (42.0-54.0); HEMOGLOBIN 13.2 g/dL (13.5-17.5); IMMATURE GRANULOCYTES 0.5 % (0-5); LYMPHOCYTES 12.3 % (15-50); MCH 30.1 pg (26.0-34.0); MCHC 31.3 g/dL (31.0-37.0); MCV 96.1 fL (80.0-100.0); MEAN PLATELET VOLUME 10.8 fL (7.4-10.4); NEUTROPHILS 75.9 % (40-80); PLATELET COUNT 312 10x3/uL (130-400); RBC 4.39 10x6/uL (4.20-6.10); RDW 19.1 % (11.5-14.5); WBC 10.3 10x3/uL (4.8-10.8)
[2017-07-18 06:34] LABS: ALBUMIN 2.9 g/dL (3.4-5.0); ANION GAP 18.4 mmol/L (8-16); BILIRUBIN - TOTAL 4.1 mg/dL (0.2-1.3); CALCIUM 8.1 mg/dL (8.5-10.1); CARBON DIOXIDE 20.3 mmol/L (21.0-32.0); CREATININE - SERUM 1.3 mg/dL (0.6-1.3); POTASSIUM - SERUM 4.7 mmol/L (3.5-5.1); PROTEIN - SERUM 6.3 g/dL (6.4-8.2)
[2017-07-18 08:09] VITALS: BP 131/59
[2017-07-18 12:18] LABS: HEPATITIS C ANTIBODY <0.1 (0.0-0.9)
[2017-07-18 20:43] VITALS: BP 110/50
[2017-07-19 06:58] LABS: BASOPHILS 0.3 % (0-2); EOSINOPHILS 3.5 % (0-7); HEMATOCRIT 41.9 % (42.0-54.0); HEMOGLOBIN 13.1 g/dL (13.5-17.5); IMMATURE GRANULOCYTES 0.6 % (0-5); LYMPHOCYTES 14.6 % (15-50); MCHC 31.3 g/dL (31.0-37.0); MCV 96.1 fL (80.0-100.0); MEAN PLATELET VOLUME 10.9 fL (7.4-10.4); MONOCYTES 9.6 % (2-11); NEUTROPHILS 71.4 % (40-80); PLATELET COUNT 287 10x3/uL (130-400); RBC 4.36 10x6/uL (4.20-6.10); WBC 10.8 10x3/uL (4.8-10.8)
[2017-07-19 07:21] LABS: INR 1.99 (0.85-1.17)
[2017-07-19 07:58] LABS: ANION GAP 16.5 mmol/L (8-16); BILIRUBIN - DIRECT 2.34 mg/dL (0.00-0.30); BILIRUBIN - TOTAL 3.97 mg/dL (0.2-1.3); CALCIUM 8.8 mg/dL (8.5-10.1); CREATININE - SERUM 1.3 mg/dL (0.6-1.3); POTASSIUM - SERUM 4.5 mmol/L (3.5-5.1); PROTEIN - SERUM 6.3 g/dL (6.4-8.2)
[2017-07-19 08:59] VITALS: BP 81/47
[2017-07-19 19:21] VITALS: BP 111/57
[2017-07-20 09:46] VITALS: BP 127/55
[2017-07-20 19:14] VITALS: BP 114/53
[2017-07-21 07:27] LABS: BILIRUBIN - TOTAL 5.2 mg/dL (0.2-1.3); CALCIUM 8.6 mg/dL (8.5-10.1); CREATININE - SERUM 1.5 mg/dL (0.6-1.3); PROTEIN - SERUM 5.9 g/dL (6.4-8.2)
[2017-07-21 07:29] LABS: ANION GAP 25.7 mmol/L (8-16); CARBON DIOXIDE 14.5 mmol/L (21.0-32.0)
[2017-07-21 07:30] LABS: POTASSIUM - SERUM 6.2 mmol/L (3.5-5.1)
[2017-07-21 08:00] VITALS: BP 116/57
[2017-07-21 20:00] VITALS: BP 111/67
[2017-07-22 06:55] LABS: ALBUMIN 3.1 g/dL (3.4-5.0); ANION GAP 26.7 mmol/L (8-16); BILIRUBIN - DIRECT 3.27 mg/dL (0.00-0.30); BILIRUBIN - INDIRECT 2.23 mg/dL (0.00-1.00); BILIRUBIN - TOTAL 5.5 mg/dL (0.2-1.3); CALCIUM 8.9 mg/dL (8.5-10.1); POTASSIUM - SERUM 5.7 mmol/L (3.5-5.1); PROTEIN - SERUM 6.5 g/dL (6.4-8.2)
[2017-07-22 06:57] LABS: CREATININE - SERUM 1.9 mg/dL (0.6-1.3)
[2017-07-22 07:28] LABS: ALPHA FETOPROTEIN -(TUMOR MRK) 2.2 ng/mL (0.0-8.3)
[2017-07-22 08:17] VITALS: BP 107/48
[2017-07-22] MEDS ORDERED: MULTAQ400 MG PO (10:40)
[2017-07-22 12:16] LABS: MITOCHONDRIAL ANTIBODY 15.1 Units (0.0-20.0); SMOOTH MUSCLE ABS (ACTIN) 27 Units (0-19)
[2017-07-22] MEDS ORDERED: LUMIGAN 0.01%2.5 ML EACH EYE (16:18)
== END 2017-07-22 15:03 | disposition short-term general hospital (02) | DRG 91 ==
LOC: D.REHAB 12:24
PROVIDERS: Emergency Medicine; Internal Medicine Gastroenterology
DX: G72.89 Other specified myopathies (principal); A41.9 Sepsis, unspecified organism; K66.1 Hemoperitoneum; N17.9 Acute kidney failure, unspecified; R17 Unspecified jaundice; K72.90 Hepatic failure, unspecified without coma; I50.9 Heart failure, unspecified; I25.10 Atherosclerotic heart disease of native coronary artery without angina pectoris; E03.9 Hypothyroidism, unspecified; E11.9 Type 2 diabetes mellitus without complications; I25.5 Ischemic cardiomyopathy; D72.829 Elevated white blood cell count, unspecified; M25.461 Effusion, right knee; R60.1 Generalized edema; R53.83 Other fatigue; D64.9 Anemia, unspecified; R53.1 Weakness; F32.9 Major depressive disorder, single episode, unspecified

== ENCOUNTER 2017-07-09 01:13 | Inpatient (IN) | payer MEDICARE ==
[2017-07-09] VITALS (7 sets, daily range): BP systolic 97–119; BP diastolic 48–60; BMI 27.3; BMI 27.2
--- NOTE | ~2017-07-09 | OP ---
PATIENT NAME: MOHIT CHARLTON MEDICAL RECORD: [id number] :64 LOCATION:D.M2 D.2113 ADMISSION DATE:07/09/17 SURGEON: RIGOBERTO DHALIWAL MD DATE OF OPERATION: 07/09/2017 PROCEDURES: 1. Left heart catheterization. 2. Selective coronary angiography. 3. Left ventriculogram. INDICATION: Angina and coronary artery disease, recent extensive anterior myocardial infarction. DESCRIPTION OF PROCEDURE: After informed consent was obtained and after detailed explanation of risks, benefits as well as alternative therapies, the patient elected to proceed with angiogram and heart catheterization. The right radial area was prepped and draped in normal sterile fashion. The right radial artery was cannulated via modified Seldinger technique with placement of 6-Irish sheath. All catheters exchanged through this sheath. FINDINGS: The left ventriculogram was performed in standard 30-degree HSIEH view, reveals global hypokinesis throughout all segments. Overall ejection fraction 25% to 30%. SELECTIVE CORONARY ANGIOGRAPHY: 1. Left main showed no significant angiographic disease. 2. Left circumflex has moderate irregularities, but no flow-limiting stenosis, unchanged from previous angiography. 3. Right coronary has moderate irregularities, but no flow-limiting stenosis, unchanged from previous angiography. 4. Left anterior descending has wide patency of the previously placed stent, moderate disease elsewise, unchanged from previous angiography. OVERALL IMPRESSION: Wide patency of the previously placed stent. No disease elsewise, hemodynamically significant. Continue medical management of the coronary artery disease and cardiac risk factors. TRANSINT:[id number] Voice Confirmation ID: [id number] DOCUMENT ID: [id number] RIGOBERTO DHALIWAL MD at 1153 CC: [id number] DICTATION DATE: 07/09/17 1543 RAG WASHER: 07/09/17 1619 DIS IN 07/10/17 [place] [address]
--- NOTE | ~2017-07-09 | HEMODYNAMI ---
PATIENT:MOHIT CHARLTON MEDICAL RECORD: [id number] : 64 LOCATION[facility] D[id number] ADMISSION DATE: 07/09/17 Generatedon:07/09/201715:43 Patient name: MOHIT CHARLTON Patient #: [id number] SSN: : 1960 Date of study: 07/09/2017 Page: Of Hemodynamic Procedure Report Patient Data Patient Demographics Procedure consent was obtained First Name: MOHIT Gender: Male Last Name: ZOLTAN : 1960 [facility] Initial: CATALINA Age: 57 year(s) Patient #: [id number] Race: Unknown Additional ID: [id number] Contact details Address: [address] [place] [address] circle State: [place] City: [place] Zip code: [address] Past Medical History Allergies: No known allergies Admission Admission Data Admission Date: 07/09/2017 Admission Time: 1:13 Admit Source: Other Room #: D.2113 Lab Results Lab Result Date: 07/09/2017 Lab Result Time: 5:12 Biochemistry Name Units Result Min Max BUN mg/dl 17 --(---*)-- 7 18 Creatinine mg/dl 0.9 --(-*--)-- 0.6 1.3 CBC Name Units Result Min Max Hemoglobin g/dl 10.9 *-(----)-- 13.5 17.5 MCHC g/dl 35.4 --(--*-)-- 31 37 Procedure Procedure Types Cath Procedure Diagnostic Procedure LHC LHC w/Coronaries Procedure Description Procedure Date Procedure Date: 07/09/2017 Procedure Start Time: 15:27 Procedure End Time: 15:42 Procedure Staff Name Function Vic Castro MD Performing Physician Chris Nolasco RT Monitor Pepe Loya RN Nurse Eufemia Sanches RT Scrub Procedure Data Cath Procedure Fluoroscopy Diagnostic fluoroscopy Total fluoroscopy Time: 2 time: 2 min min Diagnostic fluoroscopy Total fluoroscopy dose: 368 dose: 368 mGy mGy Contrast Material Contrast Material Type Amount (ml) Isovue 300 47 Entry Location Entry Primary Successful Side Size Upsize Upsize Entry Closure Maloney ccessful Closure Location (Fr) 1 (Fr) 2 (Fr) Remarks Device Remarks Radial Right 6 Fr Mechanical artery Short Compression Estimated blood loss: 5 ml Diagnostic catheters Device Type Used For End Catheter Placement DIAGNOSTIC [place] 110cm 5 Procedure Fr catheter ([id number]) DIAGNOSTIC AR 2 MOD 5 Fr Procedure catheter ([id number]) Procedure Complications No complications Procedure Medications Medication Administration Route Dosage 0.9% NaCl I.V. 100 ml/hr Oxygen NC 2 l/min Heparin Flush Bag added to field 2 bags (1000units/500ml NS) Radial Cocktail added to field 1 syringe (Verapomil 2mg/Nitro 400mcg/Heparin 1500units) Lidocaine 2% added to field 20 Versed I.V. 2 mg Fentanyl I.V. 100 mcg Radial Cocktail I.A. 1 syringe (Verapomil 2mg/Nitro 400mcg/Heparin 1500units) Hemodynamics Rest HGB: 10.9 (g/dl) Heart Rate: 81 (bpm) Pressure Samples Time Site Value (mmHg) Purpose Heart Use Rate(bpm) 15:31 LV 58/8,13 Snapshot 55 Snapshots Pre Cath Intra NCS Post Cath Vital Signs Time Heart Resp SPO2 etCO2 NIBP Rhythm Pain Sedation Rate (ipm) (%) (mmHg) (mmHg) Status Level (bpm) 15:20:03 81 25 98 0 128/62(94) NSR 0 (11) 10(A) , No pain 15:24:44 80 29 92 0 126/60(96) NSR 0 (11) 10(A) , No pain 15:29:25 81 30 97 0 118/62(93) NSR 0 (11) 10(A) , No pain 15:34:05 80 31 94 0 104/52(75) NSR 0 (11) 10(A) , No pain 15:38:42 79 25 94 0 113/59(86) NSR 0 (11) 10(A) , No pain Medications Time Medication Route Dose Verified Delivered Reason Notes Effectiveness by by 15:18:31 0.9% NaCl I.V. 100 Pepe Pepe Per ml/hr Shalini Loya physician RN RN 15:18:41 Oxygen NC 2 l/min Pepe Pepe Per Lorigan Lorigan physician RN RN 15:18:54 Heparin Flush added 2 bags Pepe Pepe used for Bag to Lorrosalia Loya procedure (1000units/500ml field RN RN NS) 15:19:24 Radial Cocktail added 1 Pepe Pepe used for (Verapomil to syringe Lorigan Lorigan procedure 2mg/Nitro field RN RN 400mcg/Heparin 1500units) 15:26:35 Lidocaine 2% added 20ml Pepe Pepe for local to vial Lorrosalia Loya anesthetic RN RN 15:26:46 Versed I.V. 2 mg Pepe Pepe for sedation Shalini Loya RN RN 15:26:57 Fentanyl I.V. 100 mcg Pepe Pepe for sedation Shalini Loya RN RN 15:29:27 Radial Cocktail I.A. 1 Pepe Vic for (Verapomil syringe Shalini Castro MD vasodilation 2mg/Nitro RN 400mcg/Heparin 1500units) Procedure Log Time Note 14:48:15 Informed consent obtained and on chart 14:50:20 Admit Source: Other 14:50:20 Diagnostic Cath status Elective 14:50:22 Pepe Loya RN sent for patient. Start room use. 14:50:23 Time tracking: Regular hours 14:50:27 Plan of Care:Hemodynamics will remain stable., Cardiac rhythm will remain stable., Comfort level will be maintained., Respiratory function will remain adequate., Patient/ family verbilizes understanding of procedure., Procedure tolerated without complication., Recovers from procedure without complications.. 14:50:40 H&P Date Dictated: 06/16/2017 Within 30 days and on chart.. 14:51:21 Lab Result : Creatinine 0.9 mg/dl 14:51:21 Lab Result : BUN 17 mg/dl 14:51:21 Lab Result : MCHC 35.4 g/dl 14:51:21 Lab Result : Hemoglobin 10.9 g/dl 14:59:58 Patient received from PCU to CCL 1 Alert and oriented. Tansferred to table in Supine position. 15:00:00 Warm blankets applied, and richi hugger turned on for patient comfort. 15:00:00 Correct patient and procedure confirmed by team. 15:00:02 ECG and BP/O2 sat monitors applied to patient. 15:05:45 Full Disclosure recording started 15:06:42 IV started by Pepe Loya RN inleft forearm with a 20 gauge IV catheter with 0.9% NaCl at KVO. 15:06:50 IV right wrist D/C'd due to need to relocate for procedure.. 15:18:31 0.9% NaCl 100 ml/hr I.V. was administered by Pepe Loya RN; Per physician; 15:18:41 Oxygen 2 l/min NC was administered by Pepe Loya RN; Per physician; 15:18:54 Heparin Flush Bag (1000units/500ml NS) 2 bags added to field was administered by Pepe Loya RN; used for procedure; 15:19:10 Vital chart was started 15:19:24 Radial Cocktail (Verapomil 2mg/Nitro 400mcg/Heparin 1500units) 1 syringe added to field was administered by Pepe Loya RN; used for procedure; 15:21:13 Baseline sample Acquired. 15:21:18 Rhythm: sinus rhythm 15:21:23 Pre-procedure instructions explained to patient. 15:21:23 Pre-op teaching completed and patient verbalized understanding. 15:21:25 Family in patients room. 15:21:26 Patient NPO since Midnight. 15:21:32 Patient allergic to No known allergies 15:21:34 Is the patient allergic to Iodine/contrast media? No. 15:21:36 Is patient on blood thinner?No 15:21:37 Patient diabetic? No. 15:21:41 Previous problem with sedation/anesthesia? No ? 15:21:44 Snore? No 15:21:45 Sleep apnea? No 15:21:49 Deviated septum? No 15:21:49 Opens mouth fully? Yes 15:21:50 Sticks out tongue? Yes 15:21:52 Airway obstruction? No ? 15:21:53 Dentures? No ? 15:21:56 Modified Omer's test Ulnar < 7 seconds 15:21:58 Patient pain scale 0/10 ?. 15:22:10 Lab results completed and on chart. 15:22:12 Right Radial & Right Groin area was prepped with chlora-prep and draped in sterile fashion 15:22:13 Alarms reviewed by R. N. 15:22:13 Sharps counted by scrub and verified by R.N. 15:22:16 Use device set Radial Dx or PCI 15:22:17 ACIST Syringe (52925) opened to sterile field. 15:22:17 Medline Cath Pack ([id number]) opened to sterile field. 15:22:19 Bag Decanter () opened to sterile field. 15:22:20 ACIST Hand Control (99618) opened to sterile field. 15:22:21 ACIST Manifold (27828) opened to sterile field. 15:22:22 Tegaderm 4 x 4 (1626W) opened to sterile field. 15:22:22 MBrace Wrist Support ([id number]) opened to sterile field. 15:22:24 SHEATH 6FR Slender ([id number]) opened to sterile field. 15:22:24 DIAGNOSTIC WIRE .035 260cm J wire (892619) opened to sterile field. 15::33 Physician arrived 15::33 --------ALL STOP TIME OUT------ 15::34 Final Timeout: patient, procedure, and site verified with staff and physician. All members of the team are in agreement. 15::35 Right Radial & Right Groin site verified by team. 15::38 Physical assessment completed. ASA score P 2 - A patient with mild systemic disease as per Vic Castro MD. 15::40 Sedation plan: IV Moderate Sedation Medication:Versed, Fentanyl 15:23:47 Zero performed for pressure channel P1 15::35 Lidocaine 2% 20ml vial added to field was administered by Pepe Loya RN; for local anesthetic; 15::46 Versed 2 mg I.V. was administered by Pepe Loya RN; for sedation; 15::57 Fentanyl 100 mcg I.V. was administered by Pepe Loya RN; for sedation; 15:27:15 Procedure started. 15:27:18 Local anesthetic to right radial artery with Lidocaine 2% by Vic Castro MD.INITIAL ACCESS ONLY 15::26 A 6 Fr Short sheath was inserted into the Right Radial artery 15:29:27 Radial Cocktail (Verapomil 2mg/Nitro 400mcg/Heparin 1500units) 1 syringe I.A. was administered by Vic Castro MD; for vasodilation; 15:30:46 SHEATH 6FR Slender ([id number]) opened to sterile field. 15:30:52 A DIAGNOSTIC [place] 110cm 5 Fr catheter ([id number]) was advanced over the wire and used for Procedure. 15:32:03 LV gram done using HSIEH 15:32:07 Injector settings: Ml/sec: 5, Volume: 15, 15:32:15 LCA angiography performed. 15:32:45 EF : 25 % 15:33:29 Catheter exchanged over wire. 15:33:39 A DIAGNOSTIC AR 2 MOD 5 Fr catheter ([id number]) was advanced over the wire and used for Procedure. 15:34:46 RCA angiography performed. 15:34:48 Catheter removed. 15:35:32 TR BAND Standard ([id number]) opened to sterile field. 15:35:50 Sheath removed intact; hemostasis achieved with Mechanical Compression to the Right Radial artery. 15:36:21 Procedure ended.(Physican Out) 15:38:01 Fluoroscopy time 02.00 minutes. 15:38:06 Flurop Dose total: 368 15:38:06 Fluoroscopy dose: 368 mGy 15:38:24 Contrast amount:Isovue 300 47ml. 15:38:25 Sharps counted by scrub and verified by R.N. 15:38:28 TR band inflated with 12cc of air. 15:38:29 Insertion/operative site no bleeding no hematoma. 15:38:45 Post right radial artery:stable, soft, clean and dry 15:40:03 Post Procedure Pulses reassessed and unchanged 15:40:08 Post-procedure physical assessment completed. ASA score P 2 - A patient with mild systemic disease as per Vic Castro MD. 15:40:10 Post procedure rhythm: unchanged. 15:40:14 Estimated blood loss: 5 ml 15:40:15 Post procedure instruction explained to patient.Patient verbalizes understanding. 15:40:16 Patient needs reinforcement of post procedure teaching. 15:41:53 Procedure and supply charges have been captured, reviewed, submitted and are correct. 15:41:57 Procedure Complication : No complications 15:41:59 Vital chart was stopped 15:41:59 See physician's report for complete and final results. 15:42:00 Report given to PCU. 15:42:03 Patient transfered to PCU with Stretcher. 15:42:05 Procedure ended. 15:42:05 Full Disclosure recording stopped 15:42:16 End room use (Document Last) Device Usage Item Name Manufacture Quantity Catalog Hospital Part Current Minima l Lot# / Number Charge Number Stock Stock Serial# Code ACIST Acist 1 55022 182902 508881 821588 20 Syringe Medical (36015) Systems Inc Medline Cath Cardinal 1 [id number] 263150 52717 464504 5 Pack Health ([id number]) Bag Decanter Microtek 1 2002S 692630 52620 075234 5 (2001S) Medical Inc. ACIST Hand Acist 1 84519 649321 970322 294914 5 Control Medical (37585) Systems Inc ACIST Acist 1 10276 496428 306499 685512 5 Manifold Medical (15515) Systems Inc Tegaderm 4 x 3M 1 1626W 761791 907613 735021 5 4 (1626W) MBrace Wrist Advanced 1 140-0250-00 801137 75303 467312 5 Support Vascular ([id number]) Dynamics SHEATH 6FR Terumo 2 [id number] 397152 179044 950756 40 Slender ([id number]) DIAGNOSTIC St Niranjan 1 843727 047625 616407 461310 30 WIRE .035 260cm J wire (431193) DIAGNOSTIC Terumo 1 40-9343 459822 065531 794292 5 [place] 110cm 5 Fr catheter (394658) DIAGNOSTIC Cardinal 1 [id number] 255477 860020 462951 20 AR 2 MOD 5 Health Fr catheter (271797V) TR BAND Terumo 1 [id number] 811177 646364 359556 40 Standard ([id number]) Signature Audit [place] Stage Time Signature Unsigned Intra-Procedure 07/09/2017 Chris Nolasco 3:43:22 PM RT(R) Signatures Monitor : Chris Nolasco RT Signature : Date : Time : [facility] [address] [facility] [address]
--- NOTE | ~2017-07-09 | DS ---
PATIENT:MOHIT SAXENA :64 MEDICAL RECORD: [id number] DISCHARGE SUMMARY ADMISSION DATE: 07/09/17 DISCHARGE DATE: 07/10/17 DISCHARGE DIAGNOSES: 1. Angina. 2. Coronary artery disease. 3. Recent anterior myocardial infarction. 4. Ischemic cardiomyopathy. 5. Hyperlipidemia. HOSPITAL COURSE: Mr. Saxena was in rehab, he had recurrent chest pain. He was transferred to the acute care setting. He underwent cardiac catheterization revealing no new coronary artery disease, wide patency of the previously intervened vessel. Anxiety plays a large component in his symptomatology. He was placed on Ativan 0.25 t.i.d., sent back to rehab. No other cardiac workup or treatment is necessary at this time. TRANSINT:[id number] Voice Confirmation ID: [id number] DOCUMENT ID: [id number] RIGOBERTO DHALIWAL MD at 1153 CC: [id number] DICTATION DATE: 07/09/17 1542 OUTDOOR STUDIES PROFESSOR: 07/10/17 1023 DIS IN 07/10/17 [address] [place] [address]
[2017-07-09 05:41] LABS: BASOPHILS 0.2 % (0-2); EOSINOPHILS 2.4 % (0-7); HEMATOCRIT 35.4 % (42.0-54.0); HEMOGLOBIN 10.9 g/dL (13.5-17.5); IMMATURE GRANULOCYTES 0.8 % (0-5); LYMPHOCYTES 10.4 % (15-50); MCH 29.3 pg (26.0-34.0); MCHC 30.8 g/dL (31.0-37.0); MCV 95.2 fL (80.0-100.0); MEAN PLATELET VOLUME 9.9 fL (7.4-10.4); NEUTROPHILS 76.2 % (40-80); PLATELET COUNT 491 10x3/uL (130-400); RBC 3.72 10x6/uL (4.20-6.10); RDW 19.4 % (11.5-14.5); WBC 8.9 10x3/uL (4.8-10.8)
[2017-07-09 06:04] LABS: CALC OSMOLALITY 275 mosm/kg (275-300); CALCIUM 7.7 mg/dL (8.5-10.1); CHLORIDE - SERUM 104 mmol/L (98-107); CREATININE - SERUM 0.9 mg/dL (0.6-1.3); GLUCOSE 130 mg/dL (74-106); POTASSIUM - SERUM 4.2 mmol/L (3.5-5.1); SODIUM 136 mmol/L (136-145); UREA NITROGEN 17 mg/dL (7-18); eGFR NON AFRICAN AMERICAN > 90 mL/min (90-120)
[2017-07-09] MEDS ORDERED: ATIVAN0.5 MG PO (16:53)
[2017-07-09] MEDS ORDERED: ASPIRIN81 MG PO (16:53)
[2017-07-10 00:29] VITALS: BP 120/57
[2017-07-10 04:29] VITALS: BP 105/50
[2017-07-10 07:55] VITALS: BP 120/60
== END 2017-07-10 09:30 | DRG 950 ==
LOC: D.M2 01:13
PROVIDERS: Emergency Medicine; Internal Medicine Interventional Cardiology
PROC: B2151ZZ Fluoroscopy of Left Heart using Low Osmolar Contrast (ICD-10-PCS; 2017-07-09)
PROC: 4A023N7 Measurement of Cardiac Sampling and Pressure, Left Heart, Percutaneous Approach (ICD-10-PCS; 2017-07-09)
PROC: B2111ZZ Fluoroscopy of Multiple Coronary Arteries using Low Osmolar Contrast (ICD-10-PCS; principal; 2017-07-09 13:30)
DX: Z51.89 Encounter for other specified aftercare (principal); I25.119 Atherosclerotic heart disease of native coronary artery with unspecified angina pectoris; I10 Essential (primary) hypertension; E78.5 Hyperlipidemia, unspecified; I25.5 Ischemic cardiomyopathy; F41.9 Anxiety disorder, unspecified

== ENCOUNTER 2017-07-22 15:52 | Inpatient (IN) | payer MEDICARE ==
[~2017-07-22] VITALS: Ht 195.6 cm; Wt 81.3 kg
--- NOTE | ~2017-07-22 | HEMODYNAMI ---
PATIENT:MOHIT CHARLTON MEDICAL RECORD: [id number] : 64 LOCATION:[facility].2117 ADMISSION DATE: 07/22/17 Generatedon:07/28/201711:13 Patient name: MOHIT CHARLTON Patient #: [id number] SSN: : 1960 Date of study: 07/28/2017 Page: Of Hemodynamic Procedure Report Patient Data Patient Demographics Procedure consent was obtained First Name: MOHIT Gender: Male Last Name: ZOLTAN : 1960 [facility] Initial: CATALINA Age: 57 year(s) Patient #: [id number] Race: Unknown Additional ID: [id number] Contact details Address: [address] [place] [address] circle State: [place] City: [place] Zip code: [address] Past Medical History Allergies: No known allergies Admission Admission Data Admission Date: 07/22/2017 Admission Time: 15:52 Room #: 2117 Procedure Procedure Types Cath Procedure Peripheral Cath Diagnostic Procedure Liver Liver Biopsy T-Cath Procedure Description Procedure Date Procedure Date: 07/28/2017 Procedure Start Time: 10:43 Procedure End Time: 11:12 Procedure Staff Name Function Surinder Medina MD Performing Physician Chacha Vidal RT Monitor Esperanza Thomas RN Nurse Darrin Ellis RT Scrub Procedure Data Cath Procedure Fluoroscopy Diagnostic fluoroscopy Total fluoroscopy Time: 3.4 time: 3.4 min min Diagnostic fluoroscopy Total fluoroscopy dose: 42 dose: 42 mGy mGy Contrast Material Contrast Material Type Amount (ml) Isovue 300 5 Procedure Medications Medication Administration Route Dosage Heparin Flush Bag added to field 1 bags (1000units/500ml NS) Lidocaine 1% added to field 20 Versed I.V. 0.5 mg Fentanyl I.V. 25 mcg Versed I.V. 0.5 mg Hemodynamics Rest Heart Rate: 71 (bpm) Snapshots Pre Cath Intra NCS Post Cath Vital Signs Time Heart Resp SPO2 etCO2 NIBP (mmHg) Rhythm Pain Sedation Rate (ipm) (%) (mmHg) Status Level (bpm) 10:21:38 70 0 90 14 Measuring NSR 0 (11) 9(A) , No pain 10:22:07 68 5 94 24.4 148/77(115) NSR 0 (11) 9(A) , No pain 10:27:06 4 92 20.7 Measuring NSR 0 (11) 9(A) , No pain 10:27:20 70 5 94 14 168/74(115) NSR 0 (11) 9(A) , No pain 10:31:45 68 16 96 22.9 153/75(125) NSR 0 (11) 9(A) , No pain 10:36:17 68 33 95 17 164/71(117) NSR 0 (11) 9(A) , No pain 10:40:43 68 21 94 19.2 156/80(118) NSR 0 (11) 9(A) , No pain 10:45:09 64 16 94 24.4 157/78(121) NSR 0 (11) 9(A) , No pain 10:49:36 68 32 94 15.5 152/73(119) NSR 0 (11) 9(A) , No pain 10:54:00 67 15 92 24.4 154/74(119) NSR 0 (11) 9(A) , No pain 10:58:26 69 19 90 21.4 157/77(118) NSR 0 (11) 9(A) , No pain 11:02:51 67 17 89 21.4 155/77(121) NSR 0 (11) 9(A) , No pain 11:07:15 66 21 90 24.4 156/75(110) NSR 0 (11) 9(A) , No pain 11:11:39 65 23 91 21.4 156/74(116) NSR 0 (11) 9(A) , No pain Medications Time Medication Route Dose Verified Delivered Reason Notes Effect iveness by by 9:54:27 Heparin Flush added 1 Bag to bags (1000units/500ml field NS) 9:55:03 Lidocaine 1% added 20ml to vial field 10:42:51 Versed I.V. 0.5 Surinder Mata for Dozing mg Adam Thomas RN sedation intermittently @ 10:45:59 10:43:06 Fentanyl I.V. 25 Surinder Mata for Dozing mcg Adam Thomas RN sedation intermittently MD @ 10:45:55 10:45:28 Versed I.V. 0.5 Surinder Mata for Mostly mg Adam Thomas RN sedation sleeping @ 10:46:05 Procedure Log Time Note 9:52:33 Use device set IR Diagnostic 9:52:37 Sterile Angiographic Pack opened to sterile field. 9:52:38 Bag Decanter (2002S) opened to sterile field. 9:54:27 Heparin Flush Bag (1000units/500ml NS) 1 bags added to field was administered by ; ; 9:55:03 Lidocaine 1% 20ml vial added to field was administered by ; ; 9:55:57 Micropuncture VSI 4FR kit opened to sterile field. 9:56:15 [place]ENT[place] 145cm wire ([id number]) opened to sterile field. 9:56:50 DILATOR, VESSEL 8/20 opened to sterile field. 9:57:05 KIT LIVER ACCESS BIOPSY W/19GX6 opened to sterile field. 10:00:12 Chacha COOPER (R) (CV) sent for patient. Start room use. 10:04:34 Time tracking: Regular hours 10:04:45 Plan of Care:Hemodynamics will remain stable., Cardiac rhythm will remain stable., Comfort level will be maintained., Respiratory function will remain adequate., Patient/ family verbilizes understanding of procedure., Procedure tolerated without complication., Recovers from procedure without complications.. 10:05:37 Patient received from Med II to IR Alert and oriented. Tansferred to table in Supine position. 10:05:46 Correct patient and procedure confirmed by team. 10:05:57 Signed procedure consent form obtained from patient. 10:06:01 ECG and BP/O2 sat monitors applied to patient. 10:06:07 Full Disclosure recording started 10:06:09 - 10:06:29 H&P Date Dictated: 07/28/2017 Within 30 days and on chart.. 10:06:33 Pre-procedure instructions explained to patient. 10:06:34 Pre-op teaching completed and patient verbalized understanding. 10:19:50 Vital chart was started 10:21:45 Baseline sample Acquired. 10:22:13 Family unavailable. 10:22:20 Patient NPO since Midnight. 10:23:06 Is the patient allergic to Iodine/contrast media? No. 10:27:34 Is patient on blood thinner?No 10:28:07 Patient diabetic? Yes. 10:28:18 - 10:28:20 ----Pre-sedation anethsthesia assessment.---- 10:28:28 Snore? No 10:28:34 Previous problem with sedation/anesthesia? No ? 10:28:55 Sleep apnea? No 10:28:58 Deviated septum? No 10:29:01 Opens mouth fully? Yes 10:29:04 Sticks out tongue? Yes 10:29:40 Dentures? No ? 10:30:02 If diabetic: On Metformin? No 10:30:32 IV patent on arrival in left forearm with 0.9% NaCl at [facility]. 10:30:52 Right neck area was prepped with chlora-prep and draped in sterile fashion 10:30:59 Alarms reviewed by R. N. 10:31:01 Sharps counted by scrub and verified by R.N. 10:39:56 Physician arrived 10:39:58 --------ALL STOP TIME OUT------ 10:40:17 Final Timeout: patient, procedure, and site verified with staff and physician. All members of the team are in agreement. 10:40:25 Right neck site verified by team. 10:40:38 Sedation plan: IV Moderate Sedation Medication:Versed, Fentanyl 10:42:51 Versed 0.5 mg I.V. was administered by Esperanza Thomas RN; for sedation; 10:43:06 Fentanyl 25 mcg I.V. was administered by Esperanza William RN; for sedation; 10:43:18 Procedure started. 10:43:32 Local anesthetic to right IJ vein with Lidocaine 1% by Surinder Mednia MD.INITIAL ACCESS ONLY 10:45:28 Versed 0.5 mg I.V. was administered by Esperanza Thomas RN; for sedation; 10:45:55 Effectiveness of Fentanyl delivered @ 10:43:06 is: Dozing intermittentl y 10:45:59 Effectiveness of Versed delivered @ 10:42:51 is: Dozing intermittently 10:46:05 Effectiveness of Versed delivered @ 10:45:28 is: Mostly sleeping 10:47:38 AMPLATZ Short [place] 260cm wire ([id number]) opened to sterile field. 10:47:48 Access obtained with 4Fr micropunture. 10:55:01 Bx cath advanced and bx obtained 10:59:09 Procedure ended.(Physican Out) 11:01:04 Fluoroscopy time 03.40 minutes. 11:01:56 Flurop Dose total: 42 11:01:56 Fluoroscopy dose: 42 mGy 11:02:06 Contrast amount:Isovue 300 5ml. 11:02:12 Sharps counted by scrub and verified by R.N. 11:02:19 Insertion/operative site no bleeding no hematoma. 11:02:31 Post-op/insertion site Right Jugular vein dressed using a 4 x 4 and Tegaderm. 11:02:44 Post right IJ vein:stable 11:02:57 Post procedure instruction explained to patient.Patient verbalizes understanding. 11:03:07 Procedure and supply charges have been captured, reviewed, submitted an d are correct. 11:07:40 Report given to [place] II. 11:10:16 Patient transfered to [facility] II with Bed. 11:12:41 Procedure ended. 11:12:41 Full Disclosure recording stopped 11:13:25 Vital chart was stopped Device Usage Item Name Manufacture Quantity Catalog Hospital Part Current [facility] l Lot# / Number Charge Number Stock Stock Serial# Code [facility] Cardinal 1 [id number] [id number] 5 Angiographic Health Pack Bag Decanter Microtek 1 108703 16727 083691 5 () Medical Inc. Micropuncture VSI VASCULAR 1 [id number] 511365 468086 5 VSI 4FR kit SOLUTIONS BENTSON 145cm [facility] 1 [id number] 669525 659393 5 [id number] wire ([id number]) DILATOR, [facility] 1 [id number] 788078 06560 333913 5 VESSEL 12/29 KIT LIVER [facility] 1 [id number] 409379 939658 5 ACCESS BIOPSY W/19GX6 AMPLATZ Short [place] 1 [id number] 849749 688985 520951 5 [id number] Taper 260cm Scientific wire ([id number]) Signature Audit [place] Stage Time Signature Unsigned Intra-Procedure 07/28/2017 Chacha 11:13:22 AM Marcy COOPER (R) (CV) Signatures Monitor : Chacha Signature : Marcy RT Date : Time : [place] [id number] [place] [id number]
[~2017-07-22 15:52] MED LIST changes: +ASPIRIN81 MG PO; +ATIVAN0.5 MG PO
[2017-07-22] MEDS ORDERED: LUMIGAN 0.01%2.5 ML EACH EYE (16:18)
[2017-07-22 16:26] VITALS: BP 134/96; BMI 26.9
[2017-07-22 19:00] VITALS: BP 124/60
[2017-07-22 20:00] VITALS: BP 120/59
[2017-07-22 20:35] LABS: CALC OSMOLALITY 282 mosm/kg (275-300); CARBON DIOXIDE 16.6 mmol/L (21.0-32.0); CHLORIDE - SERUM 99 mmol/L (98-107); CKMB 2.6 U/L (0.0-3.6); CREATINE KINASE 175 UL (21-232); GLUCOSE 150 mg/dL (74-106); POTASSIUM - SERUM 5.4 mmol/L (3.5-5.1); PRO BNP 14217 pg/mL (0-125); SODIUM 134 mmol/L (136-145); TROPONIN-I 0.057 ng/mL (0.000-0.060); UREA NITROGEN 47 mg/dL (7-18); eGFR NON AFRICAN AMERICAN 37 mL/min (90-120)
[2017-07-22 21:00] VITALS: BP 84/58
[2017-07-22 22:00] VITALS: BP 99/48
[2017-07-22 23:00] VITALS: BP 101/48
[2017-07-23] VITALS (22 sets, daily range): BP systolic 95–117; BP diastolic 45–65; Ht 195.6 cm; Wt 81.3 kg
[2017-07-23 04:27] LABS: BASOPHILS 0.1 % (0-2); EOSINOPHILS 0.6 % (0-7); HEMATOCRIT 40.7 % (42.0-54.0); HEMOGLOBIN 12.8 g/dL (13.5-17.5); IMMATURE GRANULOCYTES 0.5 % (0-5); LYMPHOCYTES 8.3 % (15-50); MCH 29.6 pg (26.0-34.0); MCHC 31.4 g/dL (31.0-37.0); MEAN PLATELET VOLUME 10.7 fL (7.4-10.4); MONOCYTES 10.4 % (2-11); NEUTROPHILS 80.1 % (40-80); RBC 4.33 10x6/uL (4.20-6.10); RDW 18.3 % (11.5-14.5); WBC 13.5 10x3/uL (4.8-10.8)
[2017-07-23 04:28] LABS: PLATELET COUNT 184 10x3/uL (130-400)
[2017-07-23 04:30] LABS: INR 2.47 (0.85-1.17); PROTIME 26.1 SECONDS (11.6-15.0)
[2017-07-23 05:38] LABS: ALBUMIN 2.7 g/dL (3.4-5.0); BILIRUBIN - TOTAL 4.2 mg/dL (0.2-1.3); CALCIUM 8.1 mg/dL (8.5-10.1); CREATININE - SERUM 1.9 mg/dL (0.6-1.3); MAGNESIUM - SERUM 2.4 mg/dL (1.8-2.4); PHOSPHOROUS 5.6 mg/dL (2.5-4.9); PROTEIN - SERUM 5.4 g/dL (6.4-8.2)
[2017-07-23 13:27] LABS: INR 2.31 (0.85-1.17); PROTIME 24.7 SECONDS (11.6-15.0)
[2017-07-24 01:41] VITALS: BP 112/80
[2017-07-24 05:16] VITALS: BP 105/54
[2017-07-24 06:38] LABS: BASOPHILS 0.1 % (0-2); EOSINOPHILS 1.8 % (0-7); HEMATOCRIT 41.9 % (42.0-54.0); HEMOGLOBIN 13.5 g/dL (13.5-17.5); IMMATURE GRANULOCYTES 0.5 % (0-5); LYMPHOCYTES 11.2 % (15-50); MCH 30.2 pg (26.0-34.0); MCHC 32.2 g/dL (31.0-37.0); MCV 93.7 fL (80.0-100.0); MEAN PLATELET VOLUME 11.9 fL (7.4-10.4); MONOCYTES 9.4 % (2-11); PLATELET COUNT 176 10x3/uL (130-400); RBC 4.47 10x6/uL (4.20-6.10); RDW 18.5 % (11.5-14.5)
[2017-07-24 07:04] LABS: ALBUMIN 2.6 g/dL (3.4-5.0); ANION GAP 18.8 mmol/L (8-16); BILIRUBIN - TOTAL 4.54 mg/dL (0.2-1.3); CALCIUM 8.3 mg/dL (8.5-10.1); CARBON DIOXIDE 16.9 mmol/L (21.0-32.0); CREATININE - SERUM 1.7 mg/dL (0.6-1.3); POTASSIUM - SERUM 4.7 mmol/L (3.5-5.1); PROTEIN - SERUM 5.6 g/dL (6.4-8.2)
[2017-07-24 07:27] LABS: INR 2.07 (0.85-1.17); PROTIME 22.7 SECONDS (11.6-15.0)
[2017-07-24 09:50] VITALS: BP 115/58
[2017-07-24 12:06] VITALS: BP 131/65
[2017-07-24 17:27] VITALS: BP 120/63
[2017-07-24 20:00] VITALS: BP 126/58
[2017-07-25 04:00] VITALS: BP 112/51
[2017-07-25 05:13] LABS: BASOPHILS 0.1 % (0-2); EOSINOPHILS 0.6 % (0-7); HEMATOCRIT 44.5 % (42.0-54.0); HEMOGLOBIN 14.4 g/dL (13.5-17.5); IMMATURE GRANULOCYTES 0.6 % (0-5); MCH 30.1 pg (26.0-34.0); MCHC 32.4 g/dL (31.0-37.0); MCV 92.9 fL (80.0-100.0); MONOCYTES 10.6 % (2-11); NEUTROPHILS 78.1 % (40-80); PLATELET COUNT 181 10x3/uL (130-400); RBC 4.79 10x6/uL (4.20-6.10); RDW 18.7 % (11.5-14.5); WBC 12.7 10x3/uL (4.8-10.8)
[2017-07-25 05:15] LABS: INR 2.24 (0.85-1.17); PROTIME 24.2 SECONDS (11.6-15.0)
[2017-07-25 05:30] LABS: ALBUMIN 2.7 g/dL (3.4-5.0); ANION GAP 20.7 mmol/L (8-16); BILIRUBIN - DIRECT 3.78 mg/dL (0.00-0.30); BILIRUBIN - TOTAL 5.21 mg/dL (0.2-1.3); CALCIUM 8.1 mg/dL (8.5-10.1); CARBON DIOXIDE 17.2 mmol/L (21.0-32.0); POTASSIUM - SERUM 4.9 mmol/L (3.5-5.1); PROTEIN - SERUM 2.7 g/dL (6.4-8.2)
[2017-07-25 08:48] VITALS: BP 109/51
[2017-07-25 11:38] VITALS: BP 109/56
[2017-07-25 19:00] VITALS: BP 166/52
[2017-07-26 04:00] VITALS: BP 106/70
[2017-07-26 04:10] LABS: BASOPHILS 0.1 % (0-2); EOSINOPHILS 0.1 % (0-7); HEMATOCRIT 44.9 % (42.0-54.0); HEMOGLOBIN 14.4 g/dL (13.5-17.5); IMMATURE GRANULOCYTES 0.5 % (0-5); LYMPHOCYTES 5.8 % (15-50); MCH 30.1 pg (26.0-34.0); MCHC 32.1 g/dL (31.0-37.0); MCV 93.7 fL (80.0-100.0); MEAN PLATELET VOLUME 12.2 fL (7.4-10.4); MONOCYTES 8.5 % (2-11); PLATELET COUNT 158 10x3/uL (130-400); RBC 4.79 10x6/uL (4.20-6.10); RDW 18.5 % (11.5-14.5); WBC 13.2 10x3/uL (4.8-10.8)
[2017-07-26 04:21] LABS: INR 2.52 (0.85-1.17); PROTIME 26.5 SECONDS (11.6-15.0)
[2017-07-26 04:37] LABS: ALBUMIN 2.6 g/dL (3.4-5.0); ANION GAP 22.5 mmol/L (8-16); CALCIUM 8.1 mg/dL (8.5-10.1); CARBON DIOXIDE 15.9 mmol/L (21.0-32.0); CREATININE - SERUM 2.2 mg/dL (0.6-1.3); POTASSIUM - SERUM 5.4 mmol/L (3.5-5.1)
[2017-07-26 04:42] LABS: PROTEIN - SERUM 5.4 g/dL (6.4-8.2)
[2017-07-26 08:10] VITALS: BP 101/43
[2017-07-26 12:04] VITALS: BP 107/50
[2017-07-26 15:32] VITALS: BP 106/52
[2017-07-26 21:35] VITALS: BP 100/52
[2017-07-27 01:24] VITALS: BP 112/53
[2017-07-27 04:46] LABS: BASOPHILS 0 % (0-2); EOSINOPHILS 0.4 % (0-7); HEMATOCRIT 47.9 % (42.0-54.0); HEMOGLOBIN 15.9 g/dL (13.5-17.5); IMMATURE GRANULOCYTES 0.4 % (0-5); LYMPHOCYTES 6.5 % (15-50); MCH 30.3 pg (26.0-34.0); MCHC 33.2 g/dL (31.0-37.0); MCV 91.4 fL (80.0-100.0); MEAN PLATELET VOLUME 11.5 fL (7.4-10.4); MONOCYTES 10.7 % (2-11); PLATELET COUNT 134 10x3/uL (130-400); RBC 5.24 10x6/uL (4.20-6.10); RDW 18.7 % (11.5-14.5); WBC 17.3 10x3/uL (4.8-10.8)
[2017-07-27 04:56] LABS: INR 2.14 (0.85-1.17); PROTIME 23.3 SECONDS (11.6-15.0)
[2017-07-27 05:06] LABS: ALBUMIN 2.9 g/dL (3.4-5.0); ANION GAP 19.5 mmol/L (8-16); BILIRUBIN - TOTAL 6.8 mg/dL (0.2-1.3); CALCIUM 8.7 mg/dL (8.5-10.1); CARBON DIOXIDE 17.6 mmol/L (21.0-32.0); POTASSIUM - SERUM 5.1 mmol/L (3.5-5.1); PROTEIN - SERUM 6.3 g/dL (6.4-8.2)
[2017-07-27 06:30] VITALS: BP 115/76
[2017-07-27 09:10] VITALS: BP 114/67
[2017-07-27 12:42] VITALS: BP 99/50
[2017-07-27 16:26] VITALS: BP 111/50
[2017-07-27 20:43] VITALS: BP 103/58
[2017-07-28] VITALS (11 sets, daily range): BP systolic 92–135; BP diastolic 44–68
[2017-07-28 05:31] LABS: BASOPHILS 0 % (0-2); EOSINOPHILS 1.3 % (0-7); HEMATOCRIT 44.1 % (42.0-54.0); HEMOGLOBIN 14.7 g/dL (13.5-17.5); IMMATURE GRANULOCYTES 0.5 % (0-5); LYMPHOCYTES 5.3 % (15-50); MCH 30.3 pg (26.0-34.0); MCHC 33.3 g/dL (31.0-37.0); MCV 90.9 fL (80.0-100.0); MEAN PLATELET VOLUME 11.8 fL (7.4-10.4); MONOCYTES 8.2 % (2-11); NEUTROPHILS 84.7 % (40-80); PLATELET COUNT 121 10x3/uL (130-400); RBC 4.85 10x6/uL (4.20-6.10); RDW 18.6 % (11.5-14.5)
[2017-07-28 05:47] LABS: APTT 42.2 SECONDS (22.8-39.4); INR 2.01 (0.85-1.17); PROTIME 22.2 SECONDS (11.6-15.0)
[2017-07-28 05:50] LABS: ALBUMIN 2.3 g/dL (3.4-5.0); BILIRUBIN - TOTAL 5.8 mg/dL (0.2-1.3); CARBON DIOXIDE 18.9 mmol/L (21.0-32.0); CREATININE - SERUM 1.7 mg/dL (0.6-1.3); PROTEIN - SERUM 5.2 g/dL (6.4-8.2)
[2017-07-28 05:53] LABS: ANION GAP 16.1 mmol/L (8-16)
[2017-07-29 04:00] VITALS: BP 111/53
[2017-07-29 06:05] LABS: BASOPHILS 0 % (0-2); EOSINOPHILS 1.9 % (0-7); HEMATOCRIT 41.4 % (42.0-54.0); HEMOGLOBIN 13.4 g/dL (13.5-17.5); IMMATURE GRANULOCYTES 0.4 % (0-5); LYMPHOCYTES 4.6 % (15-50); MCH 29.7 pg (26.0-34.0); MCHC 32.4 g/dL (31.0-37.0); MCV 91.8 fL (80.0-100.0); MEAN PLATELET VOLUME 12.1 fL (7.4-10.4); MONOCYTES 9.2 % (2-11); NEUTROPHILS 83.9 % (40-80); RBC 4.51 10x6/uL (4.20-6.10); RDW 18.7 % (11.5-14.5); WBC 13.3 10x3/uL (4.8-10.8)
[2017-07-29 06:16] LABS: PLATELET COUNT 95 10x3/uL (130-400)
[2017-07-29 06:32] LABS: ALBUMIN 2.1 g/dL (3.4-5.0); ANION GAP 15.2 mmol/L (8-16); BILIRUBIN - TOTAL 5.6 mg/dL (0.2-1.3); CALCIUM 7.8 mg/dL (8.5-10.1); CARBON DIOXIDE 22.3 mmol/L (21.0-32.0); CREATININE - SERUM 1.6 mg/dL (0.6-1.3); POTASSIUM - SERUM 3.5 mmol/L (3.5-5.1); PROTEIN - SERUM 4.8 g/dL (6.4-8.2)
[2017-07-29 07:19] LABS: PLATELET ESTIMATE DECREASED
[2017-07-29 09:21] VITALS: BP 126/59
[2017-07-29 13:01] VITALS: BP 98/37
[2017-07-29 17:36] VITALS: BP 110/56
[2017-07-29 19:00] VITALS: BP 118/52
[2017-07-30] VITALS: BP 109/48
[2017-07-30 04:00] VITALS: BP 112/49
[2017-07-30 05:48] LABS: BASOPHILS 0 % (0-2); EOSINOPHILS 2.6 % (0-7); HEMATOCRIT 42.3 % (42.0-54.0); HEMOGLOBIN 13.6 g/dL (13.5-17.5); IMMATURE GRANULOCYTES 0.3 % (0-5); LYMPHOCYTES 6.1 % (15-50); MCH 29.9 pg (26.0-34.0); MCHC 32.2 g/dL (31.0-37.0); MEAN PLATELET VOLUME 12.1 fL (7.4-10.4); PLATELET COUNT 95 10x3/uL (130-400); RBC 4.55 10x6/uL (4.20-6.10); WBC 12.5 10x3/uL (4.8-10.8)
[2017-07-30 06:13] LABS: INR 1.69 (0.85-1.17); PROTIME 19.4 SECONDS (11.6-15.0)
[2017-07-30 06:17] LABS: ALBUMIN 2.1 g/dL (3.4-5.0); ANION GAP 13.2 mmol/L (8-16); BILIRUBIN - TOTAL 4.66 mg/dL (0.2-1.3); CALCIUM 7.9 mg/dL (8.5-10.1); CARBON DIOXIDE 24.4 mmol/L (21.0-32.0); CREATININE - SERUM 1.4 mg/dL (0.6-1.3); POTASSIUM - SERUM 3.6 mmol/L (3.5-5.1); PROTEIN - SERUM 5.1 g/dL (6.4-8.2)
[2017-07-30 08:41] VITALS: BP 116/65
[2017-07-30 12:01] VITALS: BP 111/50
[2017-07-30 16:09] VITALS: BP 110/49
[2017-07-30 19:00] VITALS: BP 134/53
[2017-07-31 04:00] VITALS: BP 126/56
[2017-07-31 06:18] LABS: BASOPHILS 0 % (0-2); HEMATOCRIT 42.2 % (42.0-54.0); HEMOGLOBIN 13.7 g/dL (13.5-17.5); IMMATURE GRANULOCYTES 0.4 % (0-5); LYMPHOCYTES 4.8 % (15-50); MCH 30.1 pg (26.0-34.0); MCHC 32.5 g/dL (31.0-37.0); MCV 92.7 fL (80.0-100.0); MONOCYTES 7.8 % (2-11); PLATELET COUNT 101 10x3/uL (130-400); RBC 4.55 10x6/uL (4.20-6.10); RDW 19.1 % (11.5-14.5); WBC 12.6 10x3/uL (4.8-10.8)
[2017-07-31 07:04] LABS: ALBUMIN 2.2 g/dL (3.4-5.0); ANION GAP 14.2 mmol/L (8-16); BILIRUBIN - TOTAL 5.1 mg/dL (0.2-1.3); CALCIUM 7.9 mg/dL (8.5-10.1); CARBON DIOXIDE 22.1 mmol/L (21.0-32.0); CREATININE - SERUM 1.3 mg/dL (0.6-1.3); POTASSIUM - SERUM 3.3 mmol/L (3.5-5.1); PROTEIN - SERUM 5.5 g/dL (6.4-8.2)
[2017-07-31 08:21] VITALS: BP 151/64
[2017-07-31 12:29] VITALS: BP 119/54
[2017-07-31 15:09] VITALS: BP 120/58
[2017-07-31 20:00] VITALS: BP 114/48
[2017-08-01 04:00] VITALS: BP 120/51
[2017-08-01 09:19] VITALS: BP 111/48
[2017-08-01 13:05] VITALS: BP 127/43
[2017-08-01 16:04] VITALS: BP 114/55
[2017-08-01 20:00] VITALS: BP 106/53
[2017-08-02] VITALS: BP 109/61
[2017-08-02 04:00] VITALS: BP 100/46
[2017-08-02 05:40] LABS: BASOPHILS 0.1 % (0-2); EOSINOPHILS 1.5 % (0-7); HEMATOCRIT 45.3 % (42.0-54.0); HEMOGLOBIN 14.7 g/dL (13.5-17.5); IMMATURE GRANULOCYTES 0.4 % (0-5); LYMPHOCYTES 7.4 % (15-50); MCH 30.3 pg (26.0-34.0); MCHC 32.5 g/dL (31.0-37.0); MCV 93.4 fL (80.0-100.0); MEAN PLATELET VOLUME 12.5 fL (7.4-10.4); MONOCYTES 7.4 % (2-11); NEUTROPHILS 83.2 % (40-80); RBC 4.85 10x6/uL (4.20-6.10); RDW 18.9 % (11.5-14.5); WBC 10.7 10x3/uL (4.8-10.8)
[2017-08-02 05:42] LABS: PLATELET COUNT 127 10x3/uL (130-400)
[2017-08-02 05:51] LABS: INR 1.66 (0.85-1.17); PROTIME 19.1 SECONDS (11.6-15.0)
[2017-08-02 06:05] LABS: ALBUMIN 2.3 g/dL (3.4-5.0); ANION GAP 18.8 mmol/L (8-16); BILIRUBIN - TOTAL 5.61 mg/dL (0.2-1.3); CALCIUM 8.4 mg/dL (8.5-10.1); CARBON DIOXIDE 21.7 mmol/L (21.0-32.0); CREATININE - SERUM 1.3 mg/dL (0.6-1.3); POTASSIUM - SERUM 3.5 mmol/L (3.5-5.1); PROTEIN - SERUM 5.7 g/dL (6.4-8.2)
[2017-08-02 10:15] VITALS: BP 113/53
[2017-08-02 12:35] VITALS: BP 106/54
[2017-08-02 16:19] VITALS: BP 99/50
[2017-08-02 20:00] VITALS: BP 101/54
[2017-08-03] VITALS: BP 112/60
[2017-08-03 04:00] VITALS: BP 127/66
[2017-08-03 09:09] VITALS: BP 120/64
[2017-08-03 14:53] VITALS: BP 106/56
[2017-08-03 16:39] VITALS: BP 112/50
[2017-08-03 21:11] VITALS: BP 104/52
[2017-08-04 01:35] VITALS: BP 112/57
[2017-08-04 05:31] LABS: BASOPHILS 0.1 % (0-2); EOSINOPHILS 1.5 % (0-7); HEMATOCRIT 45.9 % (42.0-54.0); IMMATURE GRANULOCYTES 0.3 % (0-5); LYMPHOCYTES 8.1 % (15-50); MCH 30.6 pg (26.0-34.0); MCHC 32.7 g/dL (31.0-37.0); MCV 93.7 fL (80.0-100.0); MEAN PLATELET VOLUME 11.5 fL (7.4-10.4); RDW 18.7 % (11.5-14.5); WBC 12.4 10x3/uL (4.8-10.8)
[2017-08-04 05:32] LABS: PLATELET COUNT 173 10x3/uL (130-400)
[2017-08-04 05:33] VITALS: BP 124/58
[2017-08-04 05:52] LABS: ALBUMIN 2.3 g/dL (3.4-5.0); BILIRUBIN - TOTAL 5.11 mg/dL (0.2-1.3); CALCIUM 8.1 mg/dL (8.5-10.1); CARBON DIOXIDE 25.2 mmol/L (21.0-32.0); CREATININE - SERUM 1.8 mg/dL (0.6-1.3); POTASSIUM - SERUM 4.2 mmol/L (3.5-5.1); PROTEIN - SERUM 5.6 g/dL (6.4-8.2)
[2017-08-04 05:59] LABS: INR 1.87 (0.85-1.17)
[2017-08-04 07:53] VITALS: BP 125/63
[2017-08-04 11:14] VITALS: BP 131/62
[2017-08-04 15:02] VITALS: BP 126/75
[2017-08-04 21:06] VITALS: BP 106/53
[2017-08-05 05:27] VITALS: BP 101/43
[2017-08-05 08:06] VITALS: BP 128/66
[2017-08-05 10:22] VITALS: BP 91/56
[2017-08-05] MEDS ORDERED: AMBIEN10 MG PO (12:31)
[2017-08-05] MEDS ORDERED: ATIVAN0.5 MG PO (12:31)
[2017-08-05] MEDS ORDERED: NORCO 7.5/325 T1 TA1 PO (12:46)
[2017-08-05 15:24] VITALS: BP 100/63
== END 2017-08-05 15:42 | DRG 441 ==
LOC: D.M2 15:52 → D.ICU 15:52 → D.SDCHOLD 07-23 14:11 → D.M2 07-23 22:51 → D.SDCHOLD 07-25 14:24 → D.M2 07-25 14:24
PROVIDERS: Emergency Medicine; Internal Medicine Gastroenterology; Internal Medicine Nephrology; Radiology Diagnostic Radiology
PROC: 0FB13ZX Excision of Right Lobe Liver, Percutaneous Approach, Diagnostic (ICD-10-PCS; principal; 2017-07-28 10:39)
DX: K76.1 Chronic passive congestion of liver (principal); J18.9 Pneumonia, unspecified organism; K83.1 Obstruction of bile duct; N17.9 Acute kidney failure, unspecified; D68.59 Other primary thrombophilia; E87.2 Acidosis; R74.8 Abnormal levels of other serum enzymes; I25.5 Ischemic cardiomyopathy; I25.10 Atherosclerotic heart disease of native coronary artery without angina pectoris; I08.3 Combined rheumatic disorders of mitral, aortic and tricuspid valves; L05.91 Pilonidal cyst without abscess; K59.00 Constipation, unspecified; K71.6 Toxic liver disease with hepatitis, not elsewhere classified; T46.2X5A Adverse effect of other antidysrhythmic drugs, initial encounter